=== PATIENT | female | born 1940 | race Caucasian/White ===

== ENCOUNTER 2024-03-04 20:02 | Inpatient (IN) | payer MEDICARE, SELFPAY ==
[2024-03-04 20:06] VITALS: PULSE 90; RESP 40; O2SAT 95
[2024-03-04 20:13] VITALS: BP 116/59; PULSE 91; RESP 19; TEMP 37.1; O2SAT 92
[2024-03-04 20:14] VITALS: PULSE 82; PULSE 88; RESP 21; RESP 23; O2SAT 92; O2SAT 96
[2024-03-04] MEDS: ALBUTEROL/IPRATROPIUM (Duoneb) RT SOL 3 ML NEBU INH (20:14)
--- NOTE | 2024-03-04 20:18 | EDNOTE_ITS ---
ED SOB =RME/HPI General Chief Complaint: Shortness of Breath/Dyspnea Stated Complaint: RESPIRATORY DISTRESS Time Seen by Provider: 03/04/24 20:14 Arrival date/time: 03/04/24 20:02 Limitations: no limitations RME / HPI RME / HPI Narrative: DR. COHEN MAIN ED EVALUATION: 83-year-old female with history of asthma, anxiety presenting to the emergency department by ambulance after multiple episodes of nonbilious and nonbloody emesis. The patient states she was sleeping and that is when she started vomiting. She feels like she may have aspirated. Most of the day she got more short of breath. No fevers. Generally feels weak. No chest pain or lower extremity swelling. Able to ambulate at home. Related Data Home Medications ?Medication ?Instructions ?Recorded ?Confirmed albuterol sulfate 90 mcg/actuation 2 inh inhalation Q4HR PRN ASTHMA 05/17/20 05/17/20 aerosol inhaler (Ventolin HFA) alprazolam 0.5 mg tablet 0.5 mg PO BID 05/17/20 05/17/20 aspirin 81 mg tablet,delayed 81 mg PO QDAY 05/17/20 05/17/20 release budesonide 180 mcg/actuation 180 mcg inhalation BID 05/17/20 05/17/20 breath activated powder inhaler (Pulmicort Flexhaler) furosemide 20 mg tablet 20 mg PO QDAY 05/17/20 05/17/20 gabapentin 600 mg tablet 300 mg PO TID 05/17/20 05/17/20 meloxicam 7.5 mg tablet 7.5 mg PO QDAY 05/17/20 05/17/20 metoprolol succinate 100 mg 50 mg PO BID 05/17/20 05/17/20 tablet,extended release 24 hr omeprazole 20 mg capsule,delayed 20 mg PO QDAY 05/17/20 05/17/20 release potassium chloride 8 mEq 20 meq PO QDAY 05/17/20 05/17/20 tablet,extended release Previous Rx's ?Medication ?Instructions ?Recorded ciprofloxacin HCl 500 mg tablet 500 mg PO BID #14 tabs 01/02/21 (Cipro) nitrofurantoin 100 mg PO BID #14 caps 01/02/21 monohydrate/macrocrystals 100 mg capsule (Macrobid) Allergies Allergy/AdvReac Type Severity Reaction Status Date / Time ciprofloxacin Allergy Intermediate Hives Verified 01/02/21 22:42 ofloxacin AdvReac Intermediate Rash Verified 05/17/20 15:27 sulfamethoxazole AdvReac Intermediate Rash Verified 05/17/20 15:27 trimethoprim AdvReac Intermediate Rash Verified 05/17/20 15:27 Review of Systems Review of Systems Systems Reviewed: All systems reviewed, normal except as documented Narrative Review of Systems: GEN: No fever, no chills, no weight loss EYES: No discharge, no visual changes, no pain HEENT: No ear pain, no congestion, no sore throat PULM: + shortness of breath, no cough, no congestion CV: No chest pain, no dyspnea on exertion, no palpitations GI: No nausea, + multiple episodes of nonbilious and nonbloody emesis, no diarrhea, no pain, no constipation : No frequency, no urgency and no dysuria MUSC/SKEL: No joint pain, no back pain SKIN: No rash PSYCH: No hallucinations, no depression HEME/LYMPH: No easy bleeding or bruising tendencies NEURO: + generalized weakness, no headache Past Medical History Past Medical History NEUROLOGIC: Negative Neurological Disorders or Seizures CARDIAC: Positive Cardiac Disorders, Cardiac Arrhythmia and Hypertension; Negative Congestive Heart Failure RESPIRATORY: Positive Asthma; Negative Chronic Obstructive Pulmonary Disease (COPD) GASTROINTESTINAL: Positive Gastrointestinal Disorders and Gastroesophageal Reflux Disease GENITOURINARY: Negative Genitourinary Disorders or Renal Disease REPRODUCTIVE: Positive Breast Cancer MUSCULOSKELETAL: Positive Musculoskeletal Disorders and Arthritis ENDOCRINE: Negative Endocrine Disorders, Diabetes Mellitus Type 1 or Diabetes Mellitus Type 2 HEMATOLOGIC: Negative Blood Disorders PSYCHO/SOCIAL: Positive Anxiety OTHER HISTORY: Positive Cancer and Breast Cancer; Negative Autoimmune Disease or Anesthesia Reactions Surgical History SURGICAL: Positive Cardiac Surgery, Thyroidectomy, Lumpectomy and Hysterectomy Social History SMOKING STATUS: Never smoker SUBSTANCE USE: does not use ALCOHOL: Never ED Exam Narrative Physical exam: Patient feels generally weak. General Limitations: Present no limitations General appearance: Present alert; Absent lethargic Head Head exam: Present atraumatic Eye Eye exam: Present normal appearance, PERRL and EOMI ENT ENT exam: Present normal exam, normal oropharynx and mucous membranes moist Neck Neck exam: Present normal inspection, full ROM and trachea midline Chest Chest inspection: Present normal inspection and symmetric chest wall rise Respiratory Respiratory exam: Present normal lung sounds bilaterally; Absent respiratory distress or accessory muscle use Cardiovascular Cardiovascular exam: Present regular rate, normal rhythm and normal heart sounds Abdominal Exam Abdominal exam: Present soft and normal bowel sounds; Absent tenderness, guarding or rebound Extremities Exam Extremities exam: Present normal inspection and full ROM Back Exam Back exam: Present normal inspection and full ROM Neurological Exam Neurological exam: Present alert, oriented X3 and CN II-XII intact Psychiatric Psychiatric exam: Present normal affect and normal mood Skin Skin exam: Present warm, dry, intact and normal color Course Course Course Narrative: DuoNeb is given. 2219: Sepsis alert initiated. Orders made at this time are congruent with ED Adult Sepsis Order List. Re-evaluation is to be completed. NS IVF was infused at 2217. Quality Measures Possible source: pulmonary Blood cultures ordered: yes Antibiotic ordered: Yes Pertinent labs: 03/04/24 03/04/24 20:00 21:45 Lactic Acid 2.6 H mMol/L (0.4-2.0) Procalcitonin 2.61 H ng/ml (0.0-0.49) sepsis Orders Category Date Time Status Bedside COVID-19 Antigen Test NOW Care 03/04/24 21:18 Active Bedside Influenza A&B Antigen Test NOW Care 03/04/24 21:18 Completed COVID-19 Screening Questionnaire NOW Care 03/04/24 22:25 Active Decision to Admit X1 Care 03/04/24 22:25 Active XR chest 1V SEPSIS PROTOCOL Stat Exams 03/04/24 20:17 Completed BNP [B-Type Natriuretic Peptide] Stat Lab 03/04/24 20:00 Received Blood Culture (Lab) Stat Lab 03/04/24 21:40 Received CBC Stat Lab 03/04/24 20:00 Completed CMP [Comprehensive Metabolic Panel] Stat Lab 03/04/24 20:00 Completed Lactate (Lactic Acid) Stat Lab 03/04/24 21:45 Results Mag [Magnesium] Stat Lab 03/04/24 20:00 Completed PT [Prothrombin Time with INR] Stat Lab 03/04/24 20:00 Completed PTT [Partial Thromboplastin Time] Stat Lab 03/04/24 20:00 Completed Procalcitonin Stat Lab 03/04/24 20:00 Completed Troponin I Stat Lab 03/04/24 20:00 Completed Urinalysis Stat Lab 03/04/24 20:16 Ordered Urine Culture Stat Lab 03/04/24 20:17 Ordered Albuterol/Ipratr Rt Tabitha [Duoneb Rt Tabitha] Med 03/04/24 20:13 Discontinued 3 ml INH X1 ONE Azithromycin Inj [Zithromax Inj] 500 mg Med 03/04/24 21:13 Active Sodium Chloride 0.9% 250 ml [Ns] 250 ml IV QDAY MethylPREDNISolone.* [SoluMEDROL Inj] Med 03/04/24 20:15 Discontinued 125 mg IVP X1 ONE Piper/Tazo Inj [Zosyn Inj] 3.375 gm Med 03/04/24 22:19 Active Sodium Chloride 0.9% (P) [Ns 0.9% (P)] 50 ml IV X1 Sodium Chloride 0.9% 1000 ml [Ns] 1,000 ml Med 03/04/24 20:30 Discontinued IV 999 mls/hr cefTRIAXone [Rocephin] 1,000 mg Med 03/04/24 21:13 Discontinued Sodium Chloride 0.9% [Ns] 50 ml IV X1 O2 [Oxygen Delivery] PRN RT 03/04/24 22:20 Active Vital Signs Vital signs: Vital Signs Temperature 98.7 F 03/04/24 20:13 Pulse Rate 91 03/04/24 20:13 Respiratory Rate 19 03/04/24 20:13 Blood Pressure 116/59 L 03/04/24 20:13 Pulse Oximetry (%) 92 L 03/04/24 20:13 Oxygen Delivery Method Nasal Cannula 03/04/24 20:13 Shortness of Breath / Dyspnea MDM Narrative MDM Narrative:: Differential diagnosis includes asthma exacerbation, aspiration pneumonia, sepsis, electrolyte abnormality, dehydration. Patient data External records reviewed:: [facility] previous records (Reviewed last ED visit dated 01/02/21, discharged with the following: Acute UTI.) and EMS form Clinical information provided by:: patient and EMS Social determinants that could affect healthcare access:: none Patient has the following chronic illnesses:: Asthma, anxiety How is presenting disease/condition affected by chronic disease/condition?: exacerbated by Evaluation data The following diagnostics were reviewed and interpreted by me:: lab results and radiology exam(s) Lab and/or radiology exams considered but not ordered:: none Interpretation Summary: Procedure(s): XR chest 1V SEPSIS PROTOCOL Accession Number(s): [id number] cc: Dallas Mckeon MD; Antoinette Cohen MD~ Examination: AP chest single view Technique one AP portable upright chest single view Exam date and time: March 04, 20245 hrs. Comparison the 2020 Indications: Sepsis protocol Findings: Extensive left lung pneumonia Milder right base pneumonia Mild prominence of ventricle No pulmonary edema Impression: Bilateral pneumonia, extensive and diffuse in the left lung Dictated By: Dallas Mckeon MD Medications / Prescriptions Medications or Prescriptions considered but not ordered:: none Medication administrations:: Medication Administration History Azithromycin 500 mg/ Sodium (Chloride) 250 mls @ 250 mls/hr IV QDAY JOSE D Stop: 03/11/24 21:12 Piperacillin Sod/Tazobactam (Sod 3.375 gm/ Sodium Chloride) 50 mls @ 100 mls/hr IV X1 ONE Stop: 03/04/24 22:48 Discontinued Medications Albuterol/Ipratropium (Albuterol/Ipratropium (Duoneb) Rt Tabitha 3 Ml Nebu) 3 ml INH X1 ONE Stop: 03/04/24 20:14 Last Admin: 03/04/24 20:14 Dose: 3 ml Documented By: DU Sodium Chloride (Ns) 1,000 mls @ 999 mls/hr IV .Q1H1M ONE Stop: 03/04/24 21:30 Last Infusion: 03/04/24 22:18 Dose: Infused Documented By: Admin: 03/04/24 20:30 Dose: 999 mls/hr Documented By: EF Ceftriaxone Sodium 1,000 mg/ (Sodium Chloride) 50 mls @ 100 mls/hr IV X1 ONE Stop: 03/04/24 21:42 Last Infusion: 03/04/24 22:18 Dose: Infused Documented By: Admin: 03/04/24 21:55 Dose: 100 mls/hr Documented By: EF Methylprednisolone Sodium Succinate (Methylprednisolone Sod Succ 62.5 Mg/Ml 2ml Vial) 125 mg IVP X1 ONE Stop: 03/04/24 20:16 Last Admin: 03/04/24 20:30 Dose: 125 mg Documented By: EF see above Consultations Consultation(s) initiated? (list below): Yes Consultation #1 (Physician, Specialty, Details): Discussed case with [the resident physician, attending Dr. Pantoja] from Hospitalist service regarding admission. Discussed patients ED course, exam findings, labs, and radiology results. The Hospitalist [agrees] to accept the patient for admission. Time: 22:11 Diagnosis Shortness of Breath Differential Diagnosis: other (asthma exacerbation, aspiration pneumonia, sepsis, electrolyte abnormality, dehydration) Most likely diagnosis given after review of the tests above:: see below Admission Indicated Admission indicated?: indicated Admission Request Was there a request for admission?: Yes Admission Attestation Admission request attestation: Discussed case with [] from Hospitalist service regarding admission. Discussed patients ED course, exam findings, labs, and radiology results. The Hospitalist [agrees,declines] to accept the patient for admission. Disposition Plan Disposition Plan: Admit Critical Care Time Critical Care Time Critical Care Time: Yes Total Critical Care Time (min.): 45 Attestation: The high probability of sudden, clinically significant deterioration in the patient?s condition required the highest level of my preparedness to intervene urgently. The services I provided to this patient were to treat and/or prevent clinically significant deterioration. Services included the following: chart data review, reviewing nursing notes and/or old charts, documentation time, tax consultant collaboration regarding findings and treatment options, medication orders and management, direct patient care, vital sign assessments and ordering, interpreting and reviewing diagnostic studies and lab tests. Aggregate critical care time includes only time during which I was engaged in work directly related to the patient?s care, as described above, whether at bedside or elsewhere in the Emergency Department. It did not include time spent performing other reported procedures or the services of residents, students, nurses or physician assistants. Discharge Plan Plan Patient Disposition: Admit Acute Care w/in Hospital Patient condition on transfer: Stable Prescriptions/Referrals Prescriptions/Med Rec: No Action gabapentin 600 mg tablet 300 mg PO TID metoprolol succinate 100 mg tablet extended release 24 hr 50 mg PO BID meloxicam 7.5 mg tablet 7.5 mg PO QDAY alprazolam 0.5 mg tablet 0.5 mg PO BID potassium chloride 8 mEq tablet extended release 20 meq PO QDAY omeprazole 20 mg capsule,delayed release(DR/EC) 20 mg PO QDAY furosemide 20 mg tablet 20 mg PO QDAY albuterol sulfate [Ventolin HFA] 90 mcg/actuation HFA aerosol inhaler 2 inh INHALATION Q4HR PRN (Reason: ASTHMA) Patient Comments: INHALE ONE TO TWO PUFFS BY MOUTH FOUR TIMES DAILY Pulmicort Flexhaler 180 mcg/actuation aerosol powdr breath activated 180 mcg INHALATION BID aspirin 81 mg Tablet,Delayed Release (Dr/Ec) 81 mg PO QDAY ciprofloxacin HCl [Cipro] 500 mg tablet 500 mg PO BID Qty: 14 0RF nitrofurantoin monohyd/m-cryst [Macrobid] 100 mg capsule 100 mg PO BID Qty: 14 0RF Rx Instructions: must administer with a meal/food Referrals: Herminia San MD [Primary Care Provider] - In 1 week Problem List Clinical Impression: Sepsis, Bilateral pneumonia, Hypoxia, Asthma exacerbation, Vomiting Patient/Caregiver Discharge Instructions Print Language: Latvian Stand Alone Forms: [employer] Award Info., Patient Portal Info Letter
[2024-03-04 20:25] VITALS: BMI 29.0
[2024-03-04] MEDS: MethylPREDNISolone SOD SUCC 62.5 MG/ML 2ML VIAL 125 MG IVP (20:30)
[2024-03-04] MEDS: SODIUM CHLORIDE 0.9% 1000 ML 1,000 ML 999 ML IV (20:30)
[2024-03-04 21:26] LABS: Basophils % (Auto) 0 % (0-2.5); Eosinophils % (Auto) 0 % (0-10); Hematocrit 49.5 % (36.0-46.0); Hemoglobin 17.4 g/dL (12.0-16.0); Immature Granulocytes % (Auto) 0 % (0-0); Immature Granulocytes Auto 0.01 Thou/mm3 (0.00-0.00); Lymphocytes # (Auto) 0.4 Thou/mm3 (1.0-4.8); Lymphocytes % (Auto) 7 % (10-50); Mean Corpuscular HGB Conc 35.2 g/dl (31.0-37.0); Mean Corpuscular Hemoglobin 29.9 pg (25.0-35.0); Mean Corpuscular Volume 85 fL (80-100); Monocytes # (Auto) 0.3 Thou/mm3 (0.0-0.8); Monocytes % (Auto) 5 % (0-12); Neutrophils # (Auto) 5.5 Thou/mm3 (1.8-7.7); Neutrophils % (Auto) 87 % (37-80); Nucleated Red Blood Cell % 0 /100 WBC (0); Platelet Count 202 Thou/mm3 (140-440); RDW Standard Deviation 39.2 fL (36.4-46.3); Red Blood Count 5.81 Miln/mm3 (4.00-5.20); White Blood Count 6.3 Thou/mm3 (3.6-11.0)
[2024-03-04 21:44] LABS: INR 1.1 (0.9-1.3); Partial Thromboplastin Time 28.3 Seconds (22.0-36.0); Prothrombin Time 11.7 Seconds (9.0-12.2)
[2024-03-04 21:49] LABS: Alanine Aminotransferase 12 U/L (10-49); Albumin, Serum 4.4 gm/dL (3.4-4.8); Albumin/Globulin Ratio 1.8 (1.2-2.2); Alkaline Phosphatase 76 U/L (46-116); Anion Gap 11 (7-16); Aspartate Amino Transferase 22 U/L (0-34); BUN/Creatinine Ratio 19 Ratio (12-20); Bilirubin,Total 0.8 mg/dL (0.3-1.2); Blood Urea Nitrogen 15 mg/dL (9-23); Calcium 10.7 mg/dL (8.3-10.6); Calcium (Corrected) 10.7 mg/dL (8.5-10.1); Carbon Dioxide 25.5 mMol/L (20.0-31.0); Chloride 93 mMol/L (98-107); Creatinine (Component) 0.8 mg/dL (0.6-1.3); Estimated Creatinine Clearance 58.4 mL/min (>60); Globulin 2.5 gm/dL (2.3-3.5); Glucose 129 mg/dL (74-106); Magnesium 1.9 mg/dL (1.6-2.6); Osmolality,Calculated 261 (275-295); Potassium 3.2 mMol/L (3.4-5.1); Sodium 129 mMol/L (136-145); Total Protein 6.9 gm/dL (5.7-8.2); Troponin I < 0.020 ng/mL (0.0-0.045); eGFR > 60 See Note
[2024-03-04 21:54] LABS: Procalcitonin 2.61 ng/ml (0.0-0.49)
[2024-03-04 22:07] LABS: Lactate (Lactic Acid) 2.6 mMol/L (0.4-2.0)
[2024-03-04 22:31] VITALS: PULSE 82; RESP 20; O2SAT 96
[2024-03-04] MEDS: AZITHROMYCIN INJ 500 MG in SODIUM CHLORIDE 0.9% 250 ML 250 ML 250 MG IV (22:33)
[2024-03-04] MEDS: PIPER/TAZO INJ 3.375 GM in SODIUM CHLORIDE 0.9% (P) 50 ML IV (22:33)
[2024-03-04] MEDS: ONDANSETRON INJ 2 MG/ML INJ 2 ML 4 MG IV (23:01)
--- NOTE | 2024-03-04 23:15 | EKG_ITS ---
[facility] Test Date: 2024-03-04 Pat Name: BLAZE EDMONDSON Department: Room: - Gender: Female [employer]: : [id number] Requested By: Manny Morgan Order Number: [id number] Reading MD: Manny Morgan Measurements Intervals [place] Rate: 79 P: 76 [place]: 230 QRS: -73 QRSD: 118 T: 52 QT: 393 QTc: 452 Interpretive Statements SINUS RHYTHM WITH FIRST DEGREE AV BLOCK PATTERN CONSISTENT WITH PULMONARY DISEASE LEFT ANTERIOR FASCICULAR BLOCK [QRS AXIS <= -45, QR IN I, RS IN II] MODERATE VOLTAGE CRITERIA FOR LVH, CONSIDER NORMAL VARIANT [MEETS CRITERIA IN ONE OF: R(aVL), S(V1), R(V5), R(V5/V6)+S(V1)] MODERATE ST DEPRESSION [0.05+ mV ST DEPRESSION] No previous ECG available for comparison /store/[email or web address]/[id number]
[2024-03-04 23:17] LABS: B-Type Natriuretic Peptide 152 pg/mL (0-100)
--- NOTE | 2024-03-04 23:19 | PD.RESHP ---
Documentation for date of: 03/04/24 HPI History of Present Illness Chief complaint: Vomiting, Diarrhea, SOB History of present illness: HPI: Patient is an 83-year-old female with a past medical history significant for atrial flutter s/p ablation [address] Flores, asthma, essential hypertension and breast cancer s/p left mastectomy and radiation in remission presenting today with a chief complaint of vomiting, diarrhea and shortness of breath. Patient stated that she awoke this morning and had 3 episodes of vomiting and a bout of coughing simultaneously. Patient endorses only food contents in the vomit and liquid. Initially she also had 6/10 epigastric pain which is now improved. Denied any hematemesis, bile emesis and coffee-ground emesis, also denied any strict food, fever or sick contacts. Patient said her last meal was the day before, she had some homemade spaghetti. Patient also stated that while she was vomiting she had coughing episodes and thinks that she might have aspirated some food contents. Patient also endorsed diarrhea throughout the day. Described as watery, brown in color and about 5?6 episodes for the. Denies any mucus, blood, black stools. Also denies any recent antibiotic use. With regards to patient cough she says she also has a chronic nonproductive cough due to her lisinopril use, however it acutely worsened today. Of note patient says about 2 weeks ago she was sick with flulike symptoms including a productive cough, malaise and shortness of breath. She did not use any antibiotics nor did she visit the doctor or any urgent cares. ED course: BP 116/59, pulse 91, RR 19, temp 98.7 F, SpO2 93% on 4L via NC. Labs significant for Hb 17.4, HCT 49.5, NA 129, K3.2, LA 2.6, corrected calcium 10.7, Pro-Shady 2.61. EKG significant for sinus rhythm, rate 79 and first-degree AV block. Chest x-ray significant for bibasilar consolidation worse on the left In the ED patient received DuoNebs x 1, mid. 125 Mg IV x 1, normal saline 1 L IV fluid bolus, ceftriaxone 1 g IV x 1, azithromycin 500 Mg IV x 1 and Zosyn 3.375 g IV x 1. Patient will be admitted for treatment and management of community-acquired pneumonia, intractable vomiting and diarrhea. Review of Systems Review of Systems Narrative Review of Systems: GENERAL: Denies fever/chills or diaphoresis. HEENT: Denies headaches or visual changes. Denies discharge. Neuro: Denies unusual weakness or difficulty speaking. CARDIO: Denies chest pain or palpitations. PULM: As above GI: As above URO: Denies buring/itching/pain/urinary changes. 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 MSK/EXT/SKIN: Denies joint/skeletal/muschle pain, issues/changes in upper or lower extremities, itchiness, or superficial pain. PSYCH: Cooperative, pleasant mood & affect. The rest of the review of systems is otherwise negative. Past Medical History Past Medical History Comments [facility] COMMENT: Past medical history: - Asthma ? Essential hypertension - Atrial flutter s/p ablation [address] Flores ? History of squamous cell skin carcinoma s/p resection in remission - Breast cancer s/p left mastectomy and radiation in remission [2014] ? ?Muscle wasting disorder Medication list: ?Gemtesa 75 Mg p.o. daily ? Gabapentin 300 Mg p.o. 3 times daily ? Xanax 0.25 Mg p.o. twice daily as needed ? Famotidine 20 Mg p.o. twice daily ? [place] 1 tab p.o. 3 times daily as needed ? Metoprolol XL 75 Mg p.o. twice daily ? Lisinopril 25 Mg p.o. daily ? Trelegy inhaler ? Albuterol inhaler as needed ? Timolol eyedrops ? Pred forte eyedrops ? Aspirin 81 Mg daily ? Stool softener [unsure of name] Past surgical history: ? 50 years ago ? AMANDA and BSO ? ORIF right humerus for comminuted fracture 20 years ago at [facility] ? 9 corneal transplants and laser eye surgery ? Left mastectomy with experimental intra-op radiation at [place] - 2014 ? Squamous cell cancer resection 2022 Allergies: Fluoroquinolones?hives Sulfa drugs?rash Social history: Occupational History: Retired. 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 Education Level: Graduated college Marital Status: Single. 1 Kid Tobacco use: Denies ETHO use: Drinks 2-3 glasses of wine about 2?3 times a week Illicit drug use: Denies Social History Note: lives alone. At baseline she ambulates with a walker. Family History: Father - [place] Exam Vital Signs Temp Pulse Resp BP Pulse Ox O2 Del Method O2 Flow Rate 98.7 F 82 20 116/59 L 96 Nasal Cannula 7 03/04/24 20:13 03/04/24 22:31 03/04/24 22:31 03/04/24 20:13 03/04/24 22:31 03/04/24 20:13 03/04/24 22:31 Narrative Exam Constitutional Alert, oriented x 3 and comfortable. Elderly female on O2 via NC HEENT Vision grossly intact. Patent nares. Trachea midline Respiratory Healed 3 cm surgical scar left shoulder, poor inspiratory effort, decreased air entry globally, scattered wheeze and bibasilar atelectasis Cardiovascular S1 and S2 audible, RRR. No murmurs carotid bruit. No gross JVD. Abdominal Mildly distended, obese and non tender to palpation in all quadrants. BS + Genitourinary No bladder tenderness, no flank pain. Normal to palpation Musculoskeletal Extremities tone within normal limits. Trace lower extremity edema. Neurological CN II - XII grossly intact. Extremity motor and sensation grossly intact. Skin Warm, dry and intact. No apparent lesions. Psychiatric Patient has good affect, is cooperative Results: Labs 03/04/24 20:00 03/04/24 20:00 Labs: Short CBC 03/04/24 Range/Units 20:00 WBC 6.3 (3.6-11.0) Thou/mm3 Hgb 17.4 H (12.0-16.0) g/dL Hct 49.5 H (36.0-46.0) % Plt Count 202 (140-440) Thou/mm3 BMP 03/04/24 20:00 Sodium 129 L Potassium 3.2 L Chloride 93 L Carbon Dioxide 25.5 BUN 15 Creatinine 0.8 Glucose 129 H Calcium 10.7 H Cardiac Enzymes 03/04/24 Range/Units 20:00 Troponin I < 0.020 (0.0-0.045) ng/mL Liver Function 03/04/24 Range/Units 20:00 Total Bilirubin 0.8 (0.3-1.2) mg/dL AST 22 (0-34) U/L ALT 12 (10-49) U/L Alkaline Phosphatase 76 (46-116) U/L Albumin 4.4 (3.4-4.8) gm/dL Quality Measures Quality Measures sepsis Current suspected stage: ruled out Possible source: pulmonary Blood cultures ordered: yes Antibiotic ordered: Yes Advance care planning discussed with:: patient Medications Home Medications and Allergies Home Medications ?Medication ?Instructions ?Recorded ?Confirmed ?Type albuterol sulfate 90 mcg/actuation 2 inh inhalation Q4HR PRN ASTHMA 05/17/20 05/17/20 History aerosol inhaler (Ventolin HFA) alprazolam 0.5 mg tablet 0.5 mg PO BID 05/17/20 05/17/20 History aspirin 81 mg tablet,delayed 81 mg PO QDAY 05/17/20 05/17/20 History release budesonide 180 mcg/actuation 180 mcg inhalation BID 05/17/20 05/17/20 History breath activated powder inhaler (Pulmicort Flexhaler) furosemide 20 mg tablet 20 mg PO QDAY 05/17/20 05/17/20 History gabapentin 600 mg tablet 300 mg PO TID 05/17/20 05/17/20 History meloxicam 7.5 mg tablet 7.5 mg PO QDAY 05/17/20 05/17/20 History metoprolol succinate 100 mg 50 mg PO BID 05/17/20 05/17/20 History tablet,extended release 24 hr omeprazole 20 mg capsule,delayed 20 mg PO QDAY 05/17/20 05/17/20 History release potassium chloride 8 mEq 20 meq PO QDAY 05/17/20 05/17/20 History tablet,extended release Allergies Allergy/AdvReac Type Severity Reaction Status Date / Time ciprofloxacin Allergy Intermediate Hives Verified 01/02/21 22:42 ofloxacin AdvReac Intermediate Rash Verified 05/17/20 15:27 sulfamethoxazole AdvReac Intermediate Rash Verified 05/17/20 15:27 trimethoprim AdvReac Intermediate Rash Verified 05/17/20 15:27 Visit Medications Acetaminophen (Acetaminophen 325 Mg Tablet) 1,000 mg PO Q6H PRN PRN Reason: Fever >100.3 or pain Stop: 04/03/24 23:08 Albuterol/Ipratropium (Albuterol/Ipratropium (Duoneb) Rt Tabitha 3 Ml Nebu) 3 ml INH Q6HRRT JOSE D Stop: 04/04/24 00:59 Budesonide (Budesonide Rt 0.5 Mg/2 Ml Nebu) 0.5 mg INH BIDRT [facility] Stop: 04/03/24 23:14 Enoxaparin Sodium (Enoxaparin Sod Inj 40 Mg/0.4 Ml Syringe) 40 mg SC QDAY [facility] Stop: 03/19/24 08:59 Azithromycin 500 mg/ Sodium (Chloride) 250 mls @ 250 mls/hr IV QDAY [facility] Stop: 03/11/24 21:12 Last Admin: 03/04/24 22:33 Dose: 250 mls/hr Lactated Ringer's (Lactated Ringers) 1,000 mls @ 80 mls/hr IV .[id number] [facility] Stop: 04/03/24 23:14 Potassium Chloride (Kcl Ivpb) 10 meq in 100 mls @ 100 mls/hr IV Q1H [facility] Stop: 03/05/24 03:17 Morphine Sulfate (Morphine Sulf Inj 10 Mg/Ml Vial) 2 mg IVP Q4H PRN PRN Reason: Breakthrough Pain Stop: 03/09/24 23:08 Ondansetron HCl (Ondansetron Inj 2 Mg/Ml Inj 2 Ml) 4 mg IV Q6H PRN; Protocol PRN Reason: NAUSEA OR VOMITING Stop: 04/03/24 23:08 Pantoprazole Sodium (Pantoprazole Inj 40 Mg Vial) 40 mg IVP QDAY [facility] Stop: 04/03/24 23:14 Discontinued Medications Albuterol/Ipratropium (Albuterol/Ipratropium (Duoneb) Rt Tabitha 3 Ml Nebu) 3 ml INH X1 ONE Stop: 03/04/24 20:14 Last Admin: 03/04/24 20:14 Dose: 3 ml Sodium Chloride (Ns) 1,000 mls @ 999 mls/hr IV .Q1H1M ONE Stop: 03/04/24 21:30 Last Infusion: 03/04/24 22:18 Dose: Infused Ceftriaxone Sodium 1,000 mg/ (Sodium Chloride) 50 mls @ 100 mls/hr IV X1 ONE Stop: 03/04/24 21:42 Last Infusion: 03/04/24 22:18 Dose: Infused Piperacillin Sod/Tazobactam (Sod 3.375 gm/ Sodium Chloride) 50 mls @ 100 mls/hr IV X1 ONE Stop: 03/04/24 22:48 Last Admin: 03/04/24 22:33 Dose: 100 mls/hr Methylprednisolone Sodium Succinate (Methylprednisolone Sod Succ 62.5 Mg/Ml 2ml Vial) 125 mg IVP X1 ONE Stop: 03/04/24 20:16 Last Admin: 03/04/24 20:30 Dose: 125 mg Ondansetron HCl (Ondansetron Inj 2 Mg/Ml Inj 2 Ml) 4 mg IV X1 ONE; Protocol Stop: 03/04/24 22:48 Last Admin: 03/04/24 23:01 Dose: 4 mg Sodium Chloride (Sodium Chloride Rt 10% 15 Ml Nebu) 5 ml INH X1 ONE Stop: 03/04/24 23:15 Assessment & Plan Plan Patient is an 83-year-old female with a past medical history significant for atrial flutter s/p ablation [address] Flores, asthma, essential hypertension and breast cancer s/p left mastectomy and radiation in remission presenting today with a chief complaint of vomiting, diarrhea and shortness of breath.Patient will be admitted for treatment and management of community-acquired pneumonia, intractable vomiting and diarrhea. 1. Viral gastroenteritis 2. Lactic acidosis secondary to intractable vomiting 3. Diarrhea 4. Hypokalemia 5. Hyponatremia?mild Patient had 6 episodes of vomiting food contents along with 6 episodes of watery diarrhea. DDx: Viral gastroenteritis, medication side effect, food poisoning, pancreatitis On admission NA 129, K3.2, LA 2.6 Plan: ? N.p.o. ? Lactated Ringer's IV fluid at 80 cc/hour ? Lactobacilli 1 cap p.o. twice daily ? KCl 40 mEq IV x 1 ? Ondansetron 4 Mg IV Q6 hourly as needed. ? Stool studies ordered including Giardia, H. pylori, C. difficile, calprotectin, norovirus, stool culture and stool for WBCs. 6. Likely community-acquired pneumonia versus aspiration pneumonia 7. Asthma Patient presented with a cough for 1 day with possible aspiration of vomitus. On exam patient had decreased air entry bilaterally with poor inspiratory effort and scattered wheeze. Chest x-ray significant for bibasilar consolidation worse on the left PSI/PORT : 1 of 2 points. Risk class IV. Hospitalization recommended based on risk Plan: ? Supplemental O2 as needed ? Aspiration precautions -Sputum culture ordered. ? RSV ordered ? DuoNebs every 6 hourly ? Pulmicort nebs twice daily ? Started on Zosyn 4.5 g IV every 6 hourly to cover for aspiration pneumonia on [03/05? ? Started on azithromycin 500 Mg IV daily [03/04? 8. Essential hypertension 9. History of atrial flutter s/p ablation 2014 Home medication Metoprolol XL 75 Mg p.o. twice daily, lisinopril 25 Mg p.o. daily Plan: ? Day team to decide on resumption of antihypertensives 10. 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 Glaucoma Home medication timolol eyedrops and Pred forte eyedrops. Plan: ? Resume home medication timolol and Pred forte eyedrops 13. History of breast cancer s/p left mastectomy with IntraOp radiation in remission 2014 14. History of squamous cell skin carcinoma s/p resection 2022 Health maintenance: Disposition: IV antibiotics, nebulizers, stool studies Diet: NPO Lines: pIVs GI Prophylaxis: Pantoprazole IV Thrombo Prophylaxis: Enoxaparin Code status: FULL CODE Plan of care discussed with Attending Dr. Kit Morgan MD PGY 1 Attending Provider Attestation/Addendum I have discussed and was present for the essential components of the history, physical examination, diagnosis, and treatment plan with the resident. I agree with the patient's care as documented by the resident and amended herein by me. Сергей Pantoja DO. Patient seen and evaluated in the ED., 83-year-old female with significant past medical history of atrial flutter status post ablation in 2014, asthma, hypertension, breast cancer status post left mastectomy in remission presented to the ED with complaints of vomiting, watery diarrhea and shortness of breath which began approximately 1 day prior to admission. Denied any fever, chills, hematemesis, chest pain or palpitations. Patient did endorse flulike symptoms to include cough which began approximately 2 weeks ago however she also endorsed chronic cough with lisinopril use. Patient subsequently admitted for diffuse left lung pneumonia, hypokalemia and dehydration. In the ED, vital signs stable, patient afebrile, patient initially on NC 10 L, SpO2 92% however has since improved. CBC largely unremarkable, hemoglobin 17.4 likely concentrated, BMP significant for a sodium of 129, potassium 3.2, renal function is normal. Lactic acid was 2.6 on arrival, Pro-Shady elevated 2.61 and calcium slightly elevated 10.7. Chest x-ray demonstrating left lung diffuse pneumonia. Patient was given ceftriaxone, azithromycin and Zosyn in the ED. Patient admitted to med/tele, will continue ceftriaxone and azithromycin for now, blood cultures drawn and pending, will also test for C. difficile and cocci. Will replete electrolytes as needed and reconcile home medication and restart as warranted. Although this document has been carefully reviewed, there may still be some phonetic and other typographical errors. These errors are purely grammatical due to imperfections in the software program and should not be construed in any way to compromise the substance of the patient's medical care during this visit.
[2024-03-04] MEDS: POTASSIUM CHL 10 mEq IVPB 10 MEQ/100 ML BAG 100 MEQ IV (23:42)
[2024-03-04] MEDS: RINGERS LACTATED 1000 ML 1,000 ML 80 ML IV (23:42)
[2024-03-04] MEDS: PANTOPRAZOLE INJ 40 MG VIAL IVP (23:42)
[2024-03-04 23:44] LABS: Cardiac Risk Estimate 3.2 RATIO (3.7-5.6); Cholesterol 232 mg/dL (132-200); HDL Cholesterol 72 mg/dL (40-60); LDL Cholesterol,Calculated 138 mg/dL (0-130); Triglycerides 108 mg/dL (30-150)
[2024-03-05] VITALS (12 sets, daily range): BP systolic 108–139; BP diastolic 66–85; PULSE 74–99; RESP 18–22; TEMP 36.3–36.9; O2SAT 92–100; BMI 27.9
[2024-03-05 01:06] LABS: Reflex Lactate? Y
[2024-03-05] MEDS: POTASSIUM CHL 10 mEq IVPB 10 MEQ/100 ML BAG 100 MEQ IV ×5 (01:20→10:55)
[2024-03-05] MEDS: ALBUTEROL/IPRATROPIUM (Duoneb) RT SOL 3 ML NEBU INH ×4 (01:57→19:59)
[2024-03-05 05:29] LABS: Basophils % (Auto) 0 % (0-2.5); Eosinophils % (Auto) 0 % (0-10); Hematocrit 44.8 % (36.0-46.0); Hemoglobin 15.1 g/dL (12.0-16.0); Immature Granulocytes % (Auto) 0 % (0-0); Immature Granulocytes Auto 0.04 Thou/mm3 (0.00-0.00); Lymphocytes # (Auto) 0.5 Thou/mm3 (1.0-4.8); Lymphocytes % (Auto) 5 % (10-50); Mean Corpuscular HGB Conc 33.7 g/dl (31.0-37.0); Mean Corpuscular Hemoglobin 29.3 pg (25.0-35.0); Mean Corpuscular Volume 87 fL (80-100); Monocytes # (Auto) 0.5 Thou/mm3 (0.0-0.8); Monocytes % (Auto) 5 % (0-12); Neutrophils # (Auto) 10.6 Thou/mm3 (1.8-7.7); Neutrophils % (Auto) 90 % (37-80); Nucleated Red Blood Cell % 0 /100 WBC (0); Platelet Count 187 Thou/mm3 (140-440); RDW Standard Deviation 40.6 fL (36.4-46.3); Red Blood Count 5.16 Miln/mm3 (4.00-5.20); White Blood Count 11.7 Thou/mm3 (3.6-11.0)
[2024-03-05 05:53] LABS: Alanine Aminotransferase 12 U/L (10-49); Albumin, Serum 4.3 gm/dL (3.4-4.8); Alkaline Phosphatase 66 U/L (46-116); Anion Gap 12 (7-16); Aspartate Amino Transferase 18 U/L (0-34); BUN/Creatinine Ratio 20 Ratio (12-20); Bilirubin,Total 0.9 mg/dL (0.3-1.2); Blood Urea Nitrogen 18 mg/dL (9-23); Calcium 9.7 mg/dL (8.3-10.6); Calcium (Corrected) 9.7 mg/dL (8.5-10.1); Carbon Dioxide 27.3 mMol/L (20.0-31.0); Chloride 93 mMol/L (98-107); Creatinine (Component) 0.9 mg/dL (0.6-1.3); Estimated Creatinine Clearance 51.9 mL/min (>60); Globulin 2.2 gm/dL (2.3-3.5); Glucose 162 mg/dL (74-106); Lipase 20 U/L (12-53); Magnesium 1.8 mg/dL (1.6-2.6); Osmolality,Calculated 270 (275-295); Phosphorous 2.4 mg/dL (2.4-5.1); Potassium 3.2 mMol/L (3.4-5.1); Sodium 132 mMol/L (136-145); Thyroid Stimulating Hormone 0.49 uIU/mL (0.55-4.78); Total Protein 6.5 gm/dL (5.7-8.2); eGFR > 60 See Note
[2024-03-05] MEDS: BUDESONIDE RT 0.5 MG/2 ML NEBU INH ×2 (06:27→19:59)
[2024-03-05] MEDS: PIPER/TAZO 3.375 GM 50 ML IV ×3 (07:44→22:53)
[2024-03-05] MEDS: AZITHROMYCIN INJ 500 MG in SODIUM CHLORIDE 0.9% 250 ML 250 ML 250 MG IV (08:22)
[2024-03-05] MEDS: ENOXAPARIN SOD INJ 40 MG/0.4 ML SYRINGE SC (08:24)
[2024-03-05] MEDS: PANTOPRAZOLE INJ 40 MG VIAL IVP (08:24)
[2024-03-05] MEDS: TIMOLOL OP SOL 0.5% 5 ML BTL 1 DROP BOTH EYES ×2 (08:25→23:22)
[2024-03-05] MEDS: ASPIRIN EC 81 MG TABEC PO (08:25)
[2024-03-05] MEDS: lorataDINE 10 MG TABLET PO (08:25)
[2024-03-05 10:17] LABS: Collection Type, Urine Voided
[2024-03-05 10:34] LABS: Bilirubin,Urine Negative (Negative); Blood,Urine Negative (Negative); Clarity,Urine Clear (Clear/Hazy); Color,Urine Yellow (Lt Yel-Yel); Glucose, Urine Negative (Negative); Hyaline Casts,Urine 1 /hpf (0-1); Ketones,Urine Negative (Negative); Leukocyte Esterase,Urine Negative (Negative); Nitrite,Urine Negative (Negative); Protein,Urine Trace (Neg - Trace); RBC,Urine 2 /hpf (0-3); Specific Gravity,Urine 1.026 (1.001-1.035); Squamous Epithelial Cell,Urine 2 /hpf (0-5); Urobilinogen,Urine Negative mg/dL (0.0-1.0); WBC,Urine 1 /hpf (0-5)
[2024-03-05] MEDS: RINGERS LACTATED 1000 ML 1,000 ML 80 ML IV ×2 (11:09→23:31)
[2024-03-05] MEDS: POTASSIUM CHLORIDE 20 mEq TABCR PO (12:09)
--- NOTE | 2024-03-05 12:30 | PC.RT ---
pt refuses to do induction for sputum sample due to consistent vomiting. She does not want the chance of vomiting again.
[2024-03-05 12:43] LABS: Respiratory Syncytial Virus Ag Negative (Negative)
[2024-03-05 14:16] LABS: Potassium 4.4 mMol/L (3.4-5.1)
[2024-03-05 14:21] LABS: Cocci Serology, IgM Negative (Negative)
--- NOTE | 2024-03-05 17:08 | ESPR_ITS ---
Documentation for date of: 03/05/24 Senior resident attestation: Patient is an 83-year-old female past medical history of esophageal stricture status post dilations, chronic back pain, atrial flutter status post ablation, asthma, hypertension, history of breast cancer s/p mastectomy and radiation who came into the ED with vomiting and abdominal pain. There was concern for aspiration pneumonia as patient reported she vomited when she was laying in bed and may have aspirated. Also chest x-ray shows infiltrates in the left lung consistent with pneumonia/aspiration. Patient has a history of dysphagia but after dilations symptoms improve. The patient reported no diarrhea, however stool studies were ordered by admitting team due to concern for gastroenteritis. #Acute hypoxic respiratory failure #Aspiration pneumonia?IV Zosyn and IV azithromycin. #History of asthma?DuoNebs and budesonide nebulization #Dysphagia?secondary to congenital esophageal stricture, gastroenterology consult is placed, patient is on clear liquid diet. #Vomiting #History of A- flutter status post ablation?on metoprolol tartrate 100 twice daily, which is resumed #History of breast cancer #History of squamous cell cancer Patient evaluated and examined at the bedside, plan of care discussed with rest of the team including my attending physician, except as noted. Quresh PGY2 Subjective Subjective Interval history: 03/05: Patient is an overnight admit. Patient is seen and examined at bedside this morning. Patient states that yesterday she had 3 episode of mild projectile vomiting because she has congenital esophageal strictures and has been dilated many times in the past but has not been able to recently she regurgitated and aspirated her vomit. Patient states that she has been having epigastric pain which is relieved after she vomits and constantly burping. patient denies any sick contacts or recent travels she denies eating anything out of the ordinary or takeout. Patient lives on an elevation on her own and uses a walker or cane to ambulate patient has a helper that comes to her house 3-4 times a week and helps her with chores. Patient states that although she does not use oxygen at home she does have history of asthma and uses albuterol inhaler approximately once a month but yesterday she was saturating very low on oxygen in the 70s. In the ED patient is on 5 L oxygen saturating at 97% she denies any shortness of breath chest pain she still is nauseous but denies any vomiting. Patient also complains of lower abdominal tenderness denies any diarrhea patient's last bowel movement was 3 days ago and it was soft and content consistency. Patient states about 20 years ago she fell off of a mule and caused nerve damage and chronic back pain for which she sees Dr. Pedersen for pain management and Dr. Auguste for the nerve damage. Exam Vital Signs Temp Pulse Resp BP Pulse Ox O2 Del Method O2 Flow Rate 97.8 F 90 20 108/67 94 L Room Air 4 03/05/24 14:12 03/05/24 14:12 03/05/24 14:12 03/05/24 14:12 03/05/24 14:12 03/05/24 14:12 03/05/24 12:27 Narrative Exam GENERAL: A&Ox3 . Awake, Not in acute distress, elderly female on 5 L oxygen via nasal cannula NEURO: no focal neurological deficits HEENT: Atraumatic, Normocephalic. mucous membranes moist. Eyes open, symmetrical, & clear HEART: Normal Heart Sounds LUNGS: Bibasilar wheezing or no crackles. ABDOMEN: soft, non-distended, mild tenderness on right lower and left lower quadrants, tenderness in the epigastric region, bowel sounds heard, no guarding or rebound tenderness SKIN: No Rash or ecchymoses EXTREMITIES: No edema, tenderness, able to move all 4 extremities, pedal pulses palpated Objective Labs 03/06/24 12:46 03/06/24 04:48 Labs: Laboratory Results - last 24 hr 03/04/24 03/04/24 03/04/24 20:00 21:45 23:58 WBC 6.3 RBC 5.81 H Hgb 17.4 H Hct 49.5 H MCV 85 MCH 29.9 MCHC 35.2 RDW Std Deviation 39.2 Plt Count 202 Neut % (Auto) 87 H Lymph % (Auto) 7 L [place] % (Auto) 5 Eos % (Auto) 0 Baso % (Auto) 0 Neut # (Auto) 5.5 Lymph # (Auto) 0.4 L [place] # (Auto) 0.3 Eos # (Auto) 0.0 Baso # (Auto) 0.0 Immature Gran # (Auto) 0.01 H Absolute Nucleated RBC 0.00 Immature Gran % 0 Nucleated RBC % 0 PT 11.7 INR 1.1 APTT 28.3 Sodium 129 L Potassium 3.2 L Chloride 93 L Carbon Dioxide 25.5 Anion Gap 11 BUN 15 Creatinine 0.8 Estim Creat Clear Calc 58.4 L eGFR > 60 BUN/Creatinine Ratio 19 Glucose 129 H Calculated Osmolality 261 L Lactic Acid 2.6 H Calcium 10.7 H Corrected Calcium 10.7 H Phosphorus Magnesium 1.9 Total Bilirubin 0.8 AST 22 ALT 12 Alkaline Phosphatase 76 Troponin I < 0.020 B-Natriuretic Peptide 152 H Total Protein 6.9 Albumin 4.4 Globulin 2.5 Albumin/Globulin Ratio 1.8 Triglycerides 108 Cholesterol 232 H LDL Cholesterol, Calc 138 H HDL Cholesterol 72 H Cholesterol/HDL Ratio 3.2 L Lipase Procalcitonin 2.61 H TSH Ur Collection Type Urine Color Urine Clarity Urine pH Ur Specific [place] Urine Protein Urine Glucose (UA) Urine Ketones Urine Blood Urine Nitrite Urine Bilirubin Urine Urobilinogen (Auto) Ur Leukocyte Esterase Urine RBC Urine WBC Ur Squamous Epith Cells Urine Bacteria Hyaline Casts Coccidioides IgM Ab Negative RSV Rapid 03/05/24 03/05/24 03/05/24 01:35 04:25 04:30 WBC 11.7 H D RBC 5.16 Hgb 15.1 D Hct 44.8 MCV 87 MCH 29.3 MCHC 33.7 RDW Std Deviation 40.6 Plt Count 187 Neut % (Auto) 90 H Lymph % (Auto) 5 L [place] % (Auto) 5 Eos % (Auto) 0 Baso % (Auto) 0 Neut # (Auto) 10.6 H Lymph # (Auto) 0.5 L [place] # (Auto) 0.5 Eos # (Auto) 0.0 Baso # (Auto) 0.0 Immature Gran # (Auto) 0.04 H Absolute Nucleated RBC 0.00 Immature Gran % 0 Nucleated RBC % 0 PT INR APTT Sodium 132 L Potassium 3.2 L Chloride 93 L Carbon Dioxide 27.3 Anion Gap 12 BUN 18 Creatinine 0.9 Estim Creat Clear Calc 51.9 L eGFR > 60 BUN/Creatinine Ratio 20 Glucose 162 H Calculated Osmolality 270 L Lactic Acid 2.0 Calcium 9.7 Corrected Calcium 9.7 Phosphorus 2.4 Magnesium 1.8 Total Bilirubin 0.9 AST 18 ALT 12 Alkaline Phosphatase 66 Troponin I B-Natriuretic Peptide Total Protein 6.5 Albumin 4.3 Globulin 2.2 L Albumin/Globulin Ratio 2.0 Triglycerides Cholesterol LDL Cholesterol, Calc HDL Cholesterol Cholesterol/HDL Ratio Lipase 20 Procalcitonin TSH 0.49 L Ur Collection Type Urine Color Urine Clarity Urine pH Ur Specific [place] Urine Protein Urine Glucose (UA) Urine Ketones Urine Blood Urine Nitrite Urine Bilirubin Urine Urobilinogen (Auto) Ur Leukocyte Esterase Urine RBC Urine WBC Ur Squamous Epith Cells Urine Bacteria Hyaline Casts Coccidioides IgM Ab RSV Rapid Negative 03/05/24 03/05/24 09:33 13:57 WBC RBC Hgb Hct MCV MCH MCHC RDW Std Deviation Plt Count Neut % (Auto) Lymph % (Auto) [place] % (Auto) Eos % (Auto) Baso % (Auto) Neut # (Auto) Lymph # (Auto) [place] # (Auto) Eos # (Auto) Baso # (Auto) Immature Gran # (Auto) Absolute Nucleated RBC Immature Gran % Nucleated RBC % PT INR APTT Sodium Potassium 4.4 D Chloride Carbon Dioxide Anion Gap BUN Creatinine Estim Creat Clear Calc eGFR BUN/Creatinine Ratio Glucose Calculated Osmolality Lactic Acid Calcium Corrected Calcium Phosphorus Magnesium Total Bilirubin AST ALT Alkaline Phosphatase Troponin I B-Natriuretic Peptide Total Protein Albumin Globulin Albumin/Globulin Ratio Triglycerides Cholesterol LDL Cholesterol, Calc HDL Cholesterol Cholesterol/HDL Ratio Lipase Procalcitonin TSH Ur Collection Type Voided Urine Color Yellow Urine Clarity Clear Urine pH 6.0 Ur Specific [place] 1.026 Urine Protein Trace Urine Glucose (UA) Negative Urine Ketones Negative Urine Blood Negative Urine Nitrite Negative Urine Bilirubin Negative Urine Urobilinogen (Auto) Negative Ur Leukocyte Esterase Negative Urine RBC 2 Urine WBC 1 Ur Squamous Epith Cells 2 Urine Bacteria None Hyaline Casts 1 Coccidioides IgM Ab RSV Rapid Quality Measures Quality Measures sepsis Current suspected stage: ruled out Possible source: pulmonary Blood cultures ordered: yes Antibiotic ordered: Yes Advance care planning discussed with:: patient Assessment & Plan Assessment Current Active Medications: Generic Name Dose Route Start Last Admin Trade Name Freq PRN Reason Stop Dose Admin Acetaminophen 1,000 mg 03/04/24 23:09 Acetaminophen 325 Mg Tablet PO 04/03/24 23:08 Q6H PRN Fever >100.3 or pain Albuterol/Ipratropium 3 ml 03/05/24 01:00 03/05/24 12:27 Albuterol/Ipratropium (Duoneb) Rt Tabitha 3 Ml Nebu INH 04/04/24 00:59 3 ml Q6HRRT JOSE D Administration Alprazolam 0.25 mg 03/05/24 00:41 Alprazolam 0.25 Mg Tablet PO 03/10/24 00:40 BID PRN ANXIETY Aspirin 81 mg 03/05/24 09:00 03/05/24 08:25 Aspirin Ec 81 Mg Tabec PO 04/04/24 08:59 81 mg QDAY JOSE D Administration Budesonide 0.5 mg 03/05/24 07:00 03/05/24 06:27 Budesonide Rt 0.5 Mg/2 Ml Nebu INH 04/04/24 06:59 0.5 mg BIDRT JOSE D Administration Enoxaparin Sodium 40 mg 03/05/24 09:00 03/05/24 08:24 Enoxaparin Sod Inj 40 Mg/0.4 Ml Syringe SC 03/19/24 08:59 40 mg QDAY JOSE D Administration Gabapentin 300 mg 03/05/24 00:40 Gabapentin 300 Mg Capsule PO 04/04/24 00:44 TID PRN Back or leg pain Azithromycin 500 mg/ Sodium 250 mls @ 250 mls/hr 03/04/24 21:13 03/05/24 09:35 Chloride IV 03/11/24 21:12 Infused QDAY JOSE D Infusion Lactated Ringer's 1,000 mls @ 80 mls/hr 03/04/24 23:15 03/05/24 11:09 Lactated Ringers IV 04/03/24 23:14 80 mls/hr .[id number] JOSE D Administration Piperacillin/Tazobactam/Dextrose 50 mls @ 12.5 mls/hr 03/05/24 07:00 03/05/24 13:25 Zosyn IV 03/12/24 06:59 12.5 mls/hr Q8HR JOSE D Administration Protocol Lactobacillus Rhamnosus 1 cap 03/05/24 09:00 03/05/24 08:25 Lactobacillus Rhamnosus 1 Cap PO 03/12/24 08:59 Not Given BID JOSE D Loratadine 10 mg 03/05/24 09:00 03/05/24 08:25 Loratadine 10 Mg Tablet PO 04/04/24 08:59 10 mg QDAY JOSE D Administration Morphine Sulfate 2 mg 03/04/24 23:09 Morphine Sulf Inj 10 Mg/Ml Vial IVP 03/09/24 23:08 Q4H PRN Breakthrough Pain Ondansetron HCl 4 mg 03/04/24 23:09 Ondansetron Inj 2 Mg/Ml Inj 2 Ml IV 04/03/24 23:08 Q6H PRN NAUSEA OR VOMITING Protocol Pantoprazole Sodium 40 mg 03/04/24 23:15 03/05/24 08:24 Pantoprazole Inj 40 Mg Vial IVP 04/03/24 23:14 40 mg QDAY JOSE D Administration Prednisolone Acetate 1 drop 03/05/24 09:00 03/05/24 08:25 Prednisolone Op Susp 1% 5 Ml Btl BOTH EYES 04/04/24 08:59 Not Given BID JOSE D Timolol Maleate 1 drop 03/05/24 09:00 03/05/24 08:25 Timolol Op Tabitha 0.5% 5 Ml Btl BOTH EYES 04/04/24 08:59 1 drop BID JOSE D Administration Plan Ms. Ortega is an 83-year-old female with a past medical history significant for atrial flutter s/p ablation [address] Flores, asthma, hypertension and breast cancer s/p left mastectomy and radiation in remission, congenital esophageal stricture status post dilation, chronic back pain presented to the ED with a chief complaint of nausea, vomiting and abdominal pain. #Viral gastroenteritis #lactic acidosis secondary to intractable vomiting #Hyponatremia #Hypokalemia Patient had 6 episodes of vomiting DDx: Viral gastroenteritis, medication side effect, food poisoning, pancreatitis On admission NA 129, K3.2, LA 2.6 Plan: ? N.p.o. ? Lactated Ringer's IV fluid at 80 cc/hour given in the ED ? Lactobacilli 1 cap p.o. twice daily ? KCl 40 mEq IV x 2 given ? Ondansetron 4 Mg IV Q6 hourly as needed. ? Stool studies ordered including Giardia, H. pylori, C. difficile, calprotectin, norovirus, stool culture and stool for WBCs. # Acute hypoxic respiratory failure # community-acquired pneumonia versus aspiration pneumonia # History of asthma Patient presented with a cough for 1 day with possible aspiration of vomitus. Bibasilar wheezing on auscultation Patient uses inhalers at home Patient is on 5 L oxygen via nasal cannula and Chest x-ray significant for bibasilar consolidation worse on the left On admission PSI/PORT : 1 of 2 points. Risk class IV. Hospitalization recommended based on risk Plan: ? Supplemental O2 as needed ? Aspiration precautions -Sputum culture ordered. ? RSV ordered ? DuoNebs every 6 hourly ? Pulmicort nebs twice daily ? Started on Zosyn 4.5 g IV every 6 hourly to cover for aspiration pneumonia on [03/05? ? Started on azithromycin 500 Mg IV daily [03/04? # Congenital esophageal stricture -Patient states she has a history of congenital esophageal stricture and has undergone esophageal dilation with Dr. Babb many times -Patient's last dilation was sometime ago and has been unable to get an appointment -Patient has been choking on her food frequently causing her to regurgitate and aspirate Plan: ? GI consulted, appreciate recommendations #Chronic back pain -20 years ago patient fell off a mule and has been experiencing chronic back pain and nerve damage since patient sees Dr. Pedersen and Dr. Auguste outpatient -Patient uses a walker or a cane to ambulate around the house -Patient's home medications include gabapentin 300mg p.o. 3 times daily Plan: -Physical therapy ordered -Waiting med rec's to resume home medications #Essential hypertension #History of atrial flutter s/p ablation 2014 Home medication include Metoprolol XL 75 Mg p.o. twice daily, lisinopril 25 Mg p.o. daily Patient blood pressure is stable at 108/67, will hold antihypertensive therapy for now we will continue to monitor blood pressure #Allergic rhinitis #[place]at[place] s/p 9 corneal transplants #Glaucoma Home medication timolol eyedrops and Pred forte eyedrops. Plan: ? Resume home medication timolol and Pred forte eyedrops # History of breast cancer s/p left mastectomy with IntraOp radiation in remission 2014 # History of squamous cell skin carcinoma s/p resection 2022 Health maintenance: Disposition: IV antibiotics, nebulizers, stool studies Diet: NPO Lines: pIVs GI Prophylaxis: Pantoprazole IV Thrombo Prophylaxis: Enoxaparin Code status: FULL CODE Assessment and plan discussed with my senior resident Dr. Longoria & attending physician Dr. Rosio Figueroa (PGY-1)- Internal medicine resident Attending Provider Attestation/Addendum Kaye Raines, DO, attest that I was physically present for the ortega portions of the service and evaluated the patient with the resident and I reviewed and discussed the case with the resident and agree with the resident's findings and plans of care as documented above Patient seen and evaluated in the ED. Patient is somnolent and in no acute distress. Patient reported projectile vomiting and has history of esophageal strictures which has recurred. Patient reported that she is due to f/u with GI. However, overnight, patient developed nausea and vomiting. CXR shows significant left lung pneumonia, supsicious for atypical versus aspiration pneumonia. Continue with azithromycin and zosyn. However, patient on room air at time of evaluation. Will consult GI and continue with IV fluid hydration.
--- NOTE | 2024-03-05 18:19 | PC.NURSE ---
Patient arrived in med surg unit from ED via gurney around 17:35PM. Patient stated she wanted to rest Report received from Carlyn SALINAS.
--- NOTE | 2024-03-05 21:10 | ESCONSULT_ITS ---
HPI Data of Consult Requesting Physician: Kaye Avelar DO Primary Care Provider: Herminia San MD Consult Narrative Reason for consult: Nausea vomiting History of present illness: 83 years old female presented to the emergency room with nonbilious nonbloody vomiting and was subsequently admitted Lactic acid was 2.6 and sodium was 129 Chest x-ray showed bilateral pneumonia patient was subsequently admitted Patient does have a history of atrial flutter requiring ablation left mastectomy radiation therapy for breast carcinoma and history of bronchial asthma with anxiety neurosis cc:: cc: Kaye Avelar DO Review of Systems Review of Systems Systems Reviewed: All systems reviewed, normal except as documented Past Medical History Surgical History OTHER SURGICAL HX: As in the history of present illness Meds Home Medications and Allergies Home Medications ?Medication ?Instructions ?Recorded ?Confirmed ?Type albuterol sulfate 90 mcg/actuation 2 inh inhalation Q4HR PRN ASTHMA 05/17/20 05/17/20 History aerosol inhaler (Ventolin HFA) alprazolam 0.5 mg tablet 0.5 mg PO BID 05/17/20 05/17/20 History aspirin 81 mg tablet,delayed 81 mg PO QDAY 05/17/20 05/17/20 History release budesonide 180 mcg/actuation 180 mcg inhalation BID 05/17/20 05/17/20 History breath activated powder inhaler (Pulmicort Flexhaler) furosemide 20 mg tablet 20 mg PO QDAY 05/17/20 03/05/24 History gabapentin 600 mg tablet 300 mg PO TID 05/17/20 03/05/24 History meloxicam 7.5 mg tablet 7.5 mg PO QDAY 05/17/20 05/17/20 History metoprolol succinate 100 mg 50 mg PO BID 05/17/20 05/17/20 History tablet,extended release 24 hr omeprazole 20 mg capsule,delayed 20 mg PO QDAY 05/17/20 03/05/24 History release potassium chloride 8 mEq 20 meq PO QDAY 05/17/20 03/05/24 History tablet,extended release biotin 10,000 mcg capsule 10,000 mcg PO 03/05/24 History carboxymethylcellulose sodium 0.5 1 drp ophthalmic (eye) BID PRN Dry 03/05/24 03/05/24 History % eye drops (Refresh Tears) Eyes cyanocobalamin (vitamin B-12) 1,000 mcg PO QDAY 03/05/24 History 1,000 mcg tablet (Vitamin B-12) fluticasone fur. 200 mcg-umeclid 1 inh inhalation QDAY 03/05/24 03/05/24 History 62.5 mcg-vilant 25 mcg inhalat.powder (Trelegy Ellipta) hydrocodone 5 mg-acetaminophen 325 0.5 tab PO Q6H PRN Pain 03/05/24 History mg tablet lisinopril 20 1 tab PO QDAY 03/05/24 03/05/24 History mg-hydrochlorothiazide 12.5 mg tablet loperamide 2 mg capsule 2 mg PO PRN PRN Diarrhea 03/05/24 03/05/24 History loratadine 10 mg tablet 10 mg PO QDAY 03/05/24 03/05/24 History metoprolol tartrate 50 mg tablet 100 mg PO BID 03/05/24 03/05/24 History drcldhufxvpl-zxorgnwv-jhlaog tablet 1 tab PO QDAY 03/05/24 History psyllium 1 tbsp PO PRN PRN Constipation 03/05/24 03/05/24 History simethicone 125 mg capsule (Gas 125 mg PO QDAY PRN Abdominal 03/05/24 03/05/24 History Relief (simethicone)) Discomfort vibegron 75 mg tablet (Gemtesa) 75 mg PO QDAY 03/05/24 History vit C 250 mg-vit E 90 mg-zinc 40 1 tab PO BID 03/05/24 History mg-copper 1 bn-bbknsr-yfevlk capsule (PreserVision AREDS-2) Allergies Allergy/AdvReac Type Severity Reaction Status Date / Time cat dander Allergy Severe Difficulty Verified 03/05/24 21:27 Breathing ciprofloxacin Allergy Intermediate Hives Verified 03/05/24 21:24 pollen extracts Allergy Mild Difficulty Verified 03/05/24 21:26 Breathing ofloxacin AdvReac Intermediate Rash Verified 03/05/24 21:24 sulfamethoxazole AdvReac Intermediate Rash Verified 03/05/24 21:24 trimethoprim AdvReac Intermediate Rash Verified 03/05/24 21:24 Exam Vital Signs Temp Pulse Resp BP Pulse Ox O2 Del Method O2 Flow Rate 97.4 F 92 22 H 139/67 H 95 Room Air 4 03/05/24 20:00 03/05/24 20:00 03/05/24 20:00 03/05/24 20:00 03/05/24 20:00 03/05/24 20:00 03/05/24 12:27 Constitutional Comments: Chronically ill-appearing Routine Respiratory Exam Comments: Decreased breath sounds at the bases Routine Abdominal Exam Comments: Soft nontender Results Labs 03/05/24 04:25 03/05/24 13:57 Labs: Short CBC 03/04/24 03/05/24 Range/Units 20:00 04:25 WBC 6.3 11.7 H D (3.6-11.0) Thou/mm3 Hgb 17.4 H 15.1 D (12.0-16.0) g/dL Hct 49.5 H 44.8 (36.0-46.0) % Plt Count 202 187 (140-440) Thou/mm3 BMP 03/04/24 03/05/24 03/05/24 20:00 04:25 13:57 Sodium 129 L 132 L Potassium 3.2 L 3.2 L 4.4 D Chloride 93 L 93 L Carbon Dioxide 25.5 27.3 BUN 15 18 Creatinine 0.8 0.9 Glucose 129 H 162 H Calcium 10.7 H 9.7 Cardiac Enzymes 03/04/24 Range/Units 20:00 Troponin I < 0.020 (0.0-0.045) ng/mL Liver Function 03/04/24 03/05/24 Range/Units 20:00 04:25 Total Bilirubin 0.8 0.9 (0.3-1.2) mg/dL AST 22 18 (0-34) U/L ALT 12 12 (10-49) U/L Alkaline Phosphatase 76 66 (46-116) U/L Albumin 4.4 4.3 (3.4-4.8) gm/dL Urine 03/05/24 Range/Units 09:33 Urine Color Yellow (Lt Yel-Yel) Urine Clarity Clear (Clear/Hazy) Urine pH 6.0 (5.0-7.0) Ur Specific [place] 1.026 (1.001-1.035) Urine Protein Trace (Neg - Trace) Urine Glucose (UA) Negative (Negative) Assessment and Plan Additional Assessment & Plan Additional Plan: # Nausea vomiting etiology uncertain could be viral versus infectious Unlikely gastric outlet obstruction Suggestions Since it has stopped on its own lets watch her carefully Holding off any invasive GI workup Recommend liver ultrasound to look for any evidence of gallbladder disease Amylase and lipase level Will follow Other medical problems include # Community acquired pneumonia versus aspiration pneumonia # Anxiety neurosis # Bronchial asthma thank you very much for the opportunity to participate in the care of this patient
--- NOTE | 2024-03-05 22:28 | PC.NURSE ---
seen and examined by Dr. Edu hoffman/ orders made and carried out.
[2024-03-05] MEDS: prednisoLONE OP SUSP 1% 5 ML BTL 1 DROP BOTH EYES (23:23)
[2024-03-05] MEDS: ALPRazoLAM 0.25 MG TABLET PO (23:47)
[2024-03-06] VITALS (13 sets, daily range): BP systolic 125–159; BP diastolic 61–89; PULSE 78–93; RESP 18–26; TEMP 36.1–36.9; O2SAT 91–100
--- NOTE | 2024-03-06 | XR_ITS ---
Examination: Abdomen sonogram, Limited Date and time of exam: March 06, 2024 0837 hours INDICATIONS: Diagnosis gastroenteritis, epigastric pain this week Technique: Real-time nails scale transabdominal sonographic images of the upper abdomen obtained. Findings: No gallstones Gallbladder wall 0.38 cm No edema Common bile duct 0.3 cm Pancreatic head 2.7 cm Liver 17.1 cm fatty infiltration no focal liver lesions Normal hepatopedal portal venous flow Patent IVC IMPRESSION: Negative for cholelithiasis Borderline thickening gallbladder wall, clinical correlation advised, consider HIDA scan follow-up
[2024-03-06] MEDS: METOPROLOL TARTRATE 25 MG TABLET 100 MG PO ×3 (00:18→20:19)
--- NOTE | 2024-03-06 01:45 | PC.NURSE ---
US tech at bedside for liver ultrasound- Pt refused liver ultrasound at this time.
--- NOTE | 2024-03-06 01:51 | PC.NURSE ---
accessed patient's chart to assist main RN.
[2024-03-06 06:04] LABS: Basophils % (Auto) 0 % (0-2.5); Eosinophils % (Auto) 0 % (0-10); Hematocrit 33.7 % (36.0-46.0); Hemoglobin 11.6 g/dL (12.0-16.0); Immature Granulocytes % (Auto) 0 % (0-0); Immature Granulocytes Auto 0.05 Thou/mm3 (0.00-0.00); Lymphocytes # (Auto) 1.2 Thou/mm3 (1.0-4.8); Lymphocytes % (Auto) 10 % (10-50); Mean Corpuscular HGB Conc 34.4 g/dl (31.0-37.0); Mean Corpuscular Hemoglobin 29.8 pg (25.0-35.0); Mean Corpuscular Volume 87 fL (80-100); Monocytes % (Auto) 8 % (0-12); Neutrophils # (Auto) 9.3 Thou/mm3 (1.8-7.7); Neutrophils % (Auto) 80 % (37-80); Nucleated Red Blood Cell % 0 /100 WBC (0); Platelet Count 134 Thou/mm3 (140-440); RDW Standard Deviation 41.2 fL (36.4-46.3); Red Blood Count 3.89 Miln/mm3 (4.00-5.20); White Blood Count 11.5 Thou/mm3 (3.6-11.0)
[2024-03-06] MEDS: PIPER/TAZO 3.375 GM 50 ML IV ×3 (06:25→21:03)
[2024-03-06 06:58] LABS: Alanine Aminotransferase 10 U/L (10-49); Albumin, Serum 3.6 gm/dL (3.4-4.8); Alkaline Phosphatase 64 U/L (46-116); Anion Gap 8 (7-16); Aspartate Amino Transferase 19 U/L (0-34); BUN/Creatinine Ratio 27 Ratio (12-20); Bilirubin,Total 0.6 mg/dL (0.3-1.2); Blood Urea Nitrogen 16 mg/dL (9-23); Calcium 9.1 mg/dL (8.3-10.6); Calcium (Corrected) 9.4 mg/dL (8.5-10.1); Carbon Dioxide 25.2 mMol/L (20.0-31.0); Chloride 101 mMol/L (98-107); Creatinine (Component) 0.6 mg/dL (0.6-1.3); Estimated Creatinine Clearance 80.4 mL/min (>60); Globulin 1.8 gm/dL (2.3-3.5); Glucose 89 mg/dL (74-106); Osmolality,Calculated 268 (275-295); Phosphorous 1.8 mg/dL (2.4-5.1); Potassium 4.3 mMol/L (3.4-5.1); Sodium 134 mMol/L (136-145); Total Protein 5.4 gm/dL (5.7-8.2); eGFR > 60 See Note
[2024-03-06] MEDS: ALBUTEROL/IPRATROPIUM (Duoneb) RT SOL 3 ML NEBU INH ×2 (07:13→12:23)
[2024-03-06] MEDS: BUDESONIDE RT 0.5 MG/2 ML NEBU INH ×2 (07:13→19:53)
[2024-03-06] MEDS: PANTOPRAZOLE INJ 40 MG VIAL IVP (09:38)
[2024-03-06] MEDS: LACTOBACILLUS RHAMNOSUS 1 CAP PO ×2 (09:40→20:21)
[2024-03-06] MEDS: lorataDINE 10 MG TABLET PO (09:40)
[2024-03-06] MEDS: AZITHROMYCIN 250 MG TABLET 500 MG PO (09:40)
[2024-03-06] MEDS: ENOXAPARIN SOD INJ 40 MG/0.4 ML SYRINGE SC (09:41)
[2024-03-06] MEDS: ASPIRIN EC 81 MG TABEC PO (09:41)
[2024-03-06] MEDS: TIMOLOL OP SOL 0.5% 5 ML BTL 1 DROP BOTH EYES ×2 (09:42→20:25)
[2024-03-06] MEDS: prednisoLONE OP SUSP 1% 5 ML BTL 1 DROP BOTH EYES ×2 (09:43→20:36)
[2024-03-06] MEDS: NAPH,KPH MBDB 1 PACKET (1.5 GM) PO (10:13)
[2024-03-06 13:18] LABS: Basophils % (Auto) 0 % (0-2.5); Eosinophils # (Auto) 0.1 Thou/mm3 (0.0-0.5); Eosinophils % (Auto) 1 % (0-10); Hematocrit 34.2 % (36.0-46.0); Hemoglobin 11.5 g/dL (12.0-16.0); Immature Granulocytes % (Auto) 1 % (0-0); Immature Granulocytes Auto 0.06 Thou/mm3 (0.00-0.00); Lymphocytes # (Auto) 1.1 Thou/mm3 (1.0-4.8); Lymphocytes % (Auto) 9 % (10-50); Mean Corpuscular HGB Conc 33.6 g/dl (31.0-37.0); Mean Corpuscular Hemoglobin 29.3 pg (25.0-35.0); Mean Corpuscular Volume 87 fL (80-100); Monocytes # (Auto) 0.9 Thou/mm3 (0.0-0.8); Monocytes % (Auto) 7 % (0-12); Neutrophils % (Auto) 82 % (37-80); Nucleated Red Blood Cell % 0 /100 WBC (0); Platelet Count 194 Thou/mm3 (140-440); RDW Standard Deviation 41.9 fL (36.4-46.3); Red Blood Count 3.93 Miln/mm3 (4.00-5.20); White Blood Count 12.1 Thou/mm3 (3.6-11.0)
--- NOTE | 2024-03-06 13:44 | PC.SS ---
Initial assessment: this is 84 year old female admitted for pnemonia and intractable vomiting and diarrhea. ASW spoke with patient' son Marko to confirm the patient's information. Patient lives at home, alone. Confirmed home address. Patient able to complete ADL's. Patient has cane and walker at home used at time for ambulation. Patient's PCP Dr. Herminia Wadsworth. Patient's emergency contact is her son Marko. Patient to return home upon discharge, son is able to provide transportation if needed. No needs identified at this time. D/c plan: Home Next of kin: sonMarko
[2024-03-06 13:58] LABS: Cocci Serology, IgG Negative (Negative)
--- NOTE | 2024-03-06 14:48 | PC.SS ---
Rounding note: patient ready for discharge.
--- NOTE | 2024-03-06 15:09 | PC.NURSE ---
Patient has discharge order in. Informed patient about discharge planning but patient stated that she is not yet ready to go home and thinks that it is too early for her to go home. MD (Dr. Figueroa) was notified.
--- NOTE | 2024-03-06 15:58 | PC.SS ---
Addendum entered by Louise Clemens 03/07/24 08:48: - SS attempted to make over the phone contact with [facility] at [phone], no available representatives until 0900. SS will try again after 0900. Addendum entered by KRAIG Christensen 03/06/24 17:22: SS update: no fax has been received at this time to initiate [facility] clinicals submitted. Attempted contact with [facility], was only able to leave a voicemail at this time. SS to follow up tomorrow with [facility]. Addendum entered by KRAIG Christensen 03/06/24 16:53: SS update: patient informs she called [facility] to begin the appeal process. Faxed machine checked no faxed received yet. Original Note: SS follow up: met at bed side with the patient. Attending Dr. Post present. Patient was explained she is ready for discharge, however the patient does not feel ready for discharge. Patient informed she would like to appeal the discharge for today. Patient was provided with IMM and explained she has to contact [facility] to begin the appeal process. Patient verbalized understanding. Bed side nurse present and aware the patient is appealing the discharge.
--- NOTE | 2024-03-06 16:06 | PC.NURSE ---
Patient stated that she wanted to take a nap and make phone calls later for her appeal. She want to do her walk test later deisi.
--- NOTE | 2024-03-06 17:10 | PC.PT ---
PT eval only. Patient was xI with bed mobility, transfers, and ambulation with a FWW. Patient is safe to ambulate in the hallway and to the bathroom while using the FWW and a 1 person assist either family or staff for safety. RN notified.
--- NOTE | 2024-03-06 19:27 | PD.RESDS ---
Planned Discharge Date 03/06/24 DS: Providers Provider Date of admission: 03/04/24 23:09 Primary care physician: Herminia San MD Admitting Provider: Luis Pantoja DO Attending Provider on Admission: Kaye Avelar DO Consults: 03/05/24 11:33 Consult to Gastroenterology Routine Comment: Consulting Provider: Juancho Babb 03/05/24 11:34 Referral Physical Therapy Routine Comment: Physician Instructions: Attending Provider on DC: Andrae Figueroa MD Discharging Provider: Andrae Figueroa MD DS: Diagnosis Problem List Completed Was Problem List Reviewed/Reconciled?: Yes Hospital Course Hospital Course Hospital course: Ms. Ortega is an 83-year-old female with a past medical history significant for atrial flutter s/p ablation [address] Flores, asthma, hypertension and breast cancer s/p left mastectomy and radiation in remission, congenital esophageal stricture status post dilation, chronic back pain presented to [facility] on 03/04/24 ED with a chief complaint of nausea, vomiting and abdominal pain. Patient stated a day prior she was having projectile vomiting which caused her to regurgitate and aspirate. Patient denies any recent travels or sick contacts. Chest x-ray revealed bilateral pneumonia, worse on the left side. Patient was started on IV antibiotics and IV fluids. Patient was also having epigastric abdominal pain relieved by vomiting therefore GI was consulted and and recommended for liver ultrasound which was negative for cholelithiasis with Borderline thickening gallbladder wall and Liver 17.1 cm fatty infiltration no focal liver lesions, Normal hepatopedal portal venous flow. An EKG reveals sinus rhythm with first-degree AV block. Patient's intractable vomiting completely resolved, patient is able to ambulate, patient is saturating on room air without requiring any supplemental oxygen. Patient is clinically and hemodynamically stable to be discharged home. Discharge Recommendations Recommend follow up outpatient with primary care physician with in 5 days Recommend follow up with GI specialist Dr. Babb out patient within 2 weeks Continue antibiotics as directed for additional 12 days after discharge Advised to promptly return to ED if symptoms recur or worsen Hospitalization Diagnosis #Viral gastroenteritis #lactic acidosis secondary to intractable vomiting #Hyponatremia #Hypokalemia # Acute hypoxic respiratory failure # community-acquired pneumonia versus aspiration pneumonia # History of asthma #Hx of Congenital esophageal stricture #Chronic back pain #Essential hypertension #History of atrial flutter s/p ablation 2014 #Allergic rhinitis #Keratoconus s/p 9 corneal transplants #Glaucoma # History of breast cancer s/p left mastectomy with IntraOp radiation in remission 2014 # History of squamous cell skin carcinoma s/p resection 2022 Assessment and plan discussed with my attending physician Dr. Sejal Figueroa (PGY-1)- Internal medicine resident Time Spent with Patient Time attestation: Total time spent providing and/or coordinating discharge services: Exam Vital Signs Temp Pulse Resp BP Pulse Ox O2 Del Method O2 Flow Rate 97.2 F 84 18 151/69 H 93 L Room Air 4 03/06/24 16:00 03/06/24 16:00 03/06/24 16:00 03/06/24 16:00 03/06/24 16:00 03/06/24 16:00 03/05/24 12:27 Narrative Exam GENERAL: A&Ox3 . Awake, Not in acute distress NEURO: no focal neurological deficits HEENT: Atraumatic, Normocephalic. mucous membranes moist. Eyes open, symmetrical, & clear HEART: Normal Heart Sounds LUNGS: Clear to auscultation with no wheezing or crackles. ABDOMEN: soft, non-distended, non-tender, bowel sounds heard, no guarding or rebound tenderness SKIN: No Rash or ecchymoses EXTREMITIES: No edema, tenderness, able to move all 4 extremities, pedal pulses palpated Discharge Plan Plan Patient Disposition: HOME (Self Care) Patient condition on transfer: Stable Care Plan Goals: Recommend follow up outpatient with primary care physician with in 5 days Recommend follow up with GI specialist Dr. Babb out patient within 2 weeks Continue antibiotics as directed for additional 12 days after discharge Advised to promptly return to ED if symptoms recur or worsen Prescriptions/Referrals Prescriptions/Med Rec: New amoxicillin-pot clavulanate 875-125 mg tablet 1 tab PO BID 12 Days Qty: 24 0RF Continued gabapentin 600 mg tablet 300 mg PO TID alprazolam 0.5 mg tablet 0.5 mg PO BID PRN (Reason: Anxiety) Rx Instructions: pt always takes Q HS and the other one as needed. potassium chloride 8 mEq tablet extended release 20 meq PO QDAY Rx Instructions: with food omeprazole 20 mg capsule,delayed release(DR/EC) 20 mg PO QDAY Rx Instructions: before a meal furosemide 20 mg tablet 20 mg PO QDAY albuterol sulfate [Ventolin HFA] 90 mcg/actuation HFA aerosol inhaler 2 inh INHALATION Q4HR PRN (Reason: ASTHMA) Patient Comments: INHALE ONE TO TWO PUFFS BY MOUTH FOUR TIMES DAILY aspirin 81 mg Tablet,Delayed Release (Dr/Ec) 81 mg PO QDAY loratadine 10 mg Tablet 10 mg PO QDAY lisinopril-hydrochlorothiazide 20-12.5 mg Tablet 1 tab PO QDAY metoprolol tartrate 50 mg Tablet 100 mg PO BID Rx Instructions: with meals hydrocodone-acetaminophen 5-325 mg Tablet 0.5 tab PO Q6H PRN (Reason: Pain) Rx Instructions: lortab. For lower back pain. biotin 10,000 mcg Capsule 10,000 mcg PO DAILY Rx Instructions: softgel PreserVision AREDS-2 250-90-40-1 mg Capsule 1 tab PO BID Rx Instructions: soft gels cyanocobalamin (vitamin B-12) [Vitamin B-12] 1,000 mcg Tablet 1,000 mcg PO QDAY ksyqngpnebet-tqydeben-zcagnl Tablet 1 tab PO QDAY Gemtesa 75 mg Tablet 75 mg PO QDAY simethicone [Gas Relief (simethicone)] 125 mg Capsule 125 mg PO QDAY PRN (Reason: Abdominal Discomfort) Rx Instructions: over the counter. Only takes on occassions. Softgels. carboxymethylcellulose sodium [Refresh Tears] 0.5 % Drops 1 drp OPHTHALMIC (EYE) BID PRN (Reason: Dry Eyes) Rx Instructions: over the counter. loperamide 2 mg Capsule 2 mg PO PRN PRN (Reason: Diarrhea) Rx Instructions: over the counter. tablet. psyllium Powder 1 tbsp PO PRN PRN (Reason: Constipation) Rx Instructions: 1,500mg per serving. Capsule takes 3 casules. Over the counter. psyllium husk, kate,inulin. Per serving: Psyllium husk powder 1,395mg,inulin(chicory root) 75mg, Kate(kate [place]) 30mg. Trelegy Ellipta 200-62.5-25 mcg Blister With Device 1 inh INHALATION QDAY Referrals: Herminia San MD [Primary Care Provider] - Patient/Caregiver Discharge Instructions Print Language: [place] Stand Alone Forms: Venita Award Info., Patient Portal Info Letter Discharge Order Discharge Orders: Discharge (Routine); Ordered 03/06/24 Ordered By: Andrae Figueroa Quality Discharge Quality Measures none MD Attestestation MD Attestation 84-year-old female with multiple comorbidities including atrial flutter status post ablation, hypertension, breast cancer status post left mastectomy and congenital esophageal strictures status post multiple dilation presented with GI symptoms found to have gastroenteritis less likely viral in nature as studies have been negative. As of now, patient is hemodynamically stable and decision will be to discharge the patient home. Of note, patient will need outpatient GI workup including colonoscopy to rule out microscopic colitis. I reviewed above note and agree with findings and plans. I have also personally examined the patient with medicine team and went over assessment and plan with medical team including biomedical engineering internship and resident physician.
[2024-03-06] MEDS: GABAPENTIN 300 MG CAPSULE PO (20:22)
[2024-03-06] MEDS: MORPHINE SULF INJ 10 MG/ML VIAL 2 MG IVP (20:32)
--- NOTE | 2024-03-06 20:49 | PD.IMPROG ---
Documentation for date of: 03/06/24 Subjective Subjective Interval history: Liver ultrasound shows no cholelithiasis some thickening of the gallbladder wall Nausea vomiting has improved okay to discharge patient home if the nausea vomiting returns, I can do an outpatient upper endoscopy Exam Vital Signs Temp Pulse Resp BP Pulse Ox O2 Del Method O2 Flow Rate 97.8 F 88 21 H 147/72 H 91 L Room Air 4 03/06/24 20:00 03/06/24 20:19 03/06/24 20:00 03/06/24 20:19 03/06/24 20:00 03/06/24 20:00 03/06/24 20:00 Objective Labs 03/06/24 12:46 03/06/24 04:48 Labs: Laboratory Results - last 24 hr 03/04/24 03/06/24 03/06/24 23:58 04:48 12:46 WBC 11.5 H 12.1 H RBC 3.89 L 3.93 L Hgb 11.6 L D 11.5 L Hct 33.7 L D 34.2 L MCV 87 87 MCH 29.8 29.3 MCHC 34.4 33.6 RDW Std Deviation 41.2 41.9 Plt Count 134 L D 194 D Neut % (Auto) 80 82 H Lymph % (Auto) 10 9 L [place] % (Auto) 8 7 Eos % (Auto) 0 1 Baso % (Auto) 0 0 Neut # (Auto) 9.3 H 10.0 H Lymph # (Auto) 1.2 1.1 [place] # (Auto) 1.0 H 0.9 H Eos # (Auto) 0.0 0.1 Baso # (Auto) 0.0 0.0 Immature Gran # (Auto) 0.05 H 0.06 H Absolute Nucleated RBC 0.00 0.00 Immature Gran % 0 1 H Nucleated RBC % 0 0 Sodium 134 L Potassium 4.3 Chloride 101 Carbon Dioxide 25.2 Anion Gap 8 BUN 16 Creatinine 0.6 Estim Creat Clear Calc 80.4 eGFR > 60 BUN/Creatinine Ratio 27 H Glucose 89 D Calculated Osmolality 268 L Calcium 9.1 Corrected Calcium 9.4 Phosphorus 1.8 L Magnesium 2.0 Total Bilirubin 0.6 AST 19 ALT 10 Alkaline Phosphatase 64 Total Protein 5.4 L Albumin 3.6 D Globulin 1.8 L Albumin/Globulin Ratio 2.0 Coccidioides IgG Ab Negative Impressions Impression: Nausea vomiting resolved Thickening of the gallbladder wall no cholelithiasis Okay to discharge patient home If the vomiting returns patient can make an outpatient follow-up with me I will be happy to perform an upper endoscopy at that time including CCK HIDA scan with ejection fraction of the gallbladder Assessment & Plan A&P Narrative # Nausea vomiting etiology uncertain could be viral versus infectious Unlikely gastric outlet obstruction Suggestions Since it has stopped on its own lets watch her carefully Holding off any invasive GI workup Recommend liver ultrasound to look for any evidence of gallbladder disease Amylase and lipase level Will follow Other medical problems include # Community acquired pneumonia versus aspiration pneumonia # Anxiety neurosis # Bronchial asthma thank you very much for the opportunity to participate in the care of this patient Time Spent With Patient Time: Total time spent is greater than 50% in coordination of care (as documented) at patient's floor/unit and/or counseling patient:
[2024-03-06] MEDS: ALPRazoLAM 0.25 MG TABLET PO (21:02)
[2024-03-07] VITALS (14 sets, daily range): BP systolic 107–144; BP diastolic 52–72; PULSE 74–88; RESP 18–21; TEMP 36.3–36.6; O2SAT 90–98; BMI 27.8
[2024-03-07] MEDS: PIPER/TAZO 3.375 GM 50 ML IV ×3 (05:15→21:00)
[2024-03-07 05:48] LABS: Basophils % (Auto) 0 % (0-2.5); Eosinophils # (Auto) 0.3 Thou/mm3 (0.0-0.5); Eosinophils % (Auto) 3 % (0-10); Hematocrit 31.8 % (36.0-46.0); Hemoglobin 10.7 g/dL (12.0-16.0); Immature Granulocytes % (Auto) 1 % (0-0); Immature Granulocytes Auto 0.06 Thou/mm3 (0.00-0.00); Lymphocytes # (Auto) 1.3 Thou/mm3 (1.0-4.8); Lymphocytes % (Auto) 13 % (10-50); Mean Corpuscular HGB Conc 33.6 g/dl (31.0-37.0); Mean Corpuscular Hemoglobin 29.8 pg (25.0-35.0); Mean Corpuscular Volume 89 fL (80-100); Monocytes # (Auto) 0.7 Thou/mm3 (0.0-0.8); Monocytes % (Auto) 7 % (0-12); Neutrophils # (Auto) 7.6 Thou/mm3 (1.8-7.7); Neutrophils % (Auto) 75 % (37-80); Nucleated Red Blood Cell % 0 /100 WBC (0); Platelet Count 141 Thou/mm3 (140-440); RDW Standard Deviation 43.7 fL (36.4-46.3); Red Blood Count 3.59 Miln/mm3 (4.00-5.20); White Blood Count 10.1 Thou/mm3 (3.6-11.0)
[2024-03-07 06:44] LABS: Alanine Aminotransferase 9 U/L (10-49); Albumin, Serum 3.5 gm/dL (3.4-4.8); Albumin/Globulin Ratio 1.9 (1.2-2.2); Alkaline Phosphatase 59 U/L (46-116); Anion Gap 7 (7-16); Aspartate Amino Transferase 18 U/L (0-34); BUN/Creatinine Ratio 20 Ratio (12-20); Bilirubin,Total 0.7 mg/dL (0.3-1.2); Blood Urea Nitrogen 12 mg/dL (9-23); Calcium 8.8 mg/dL (8.3-10.6); Calcium (Corrected) 9.2 mg/dL (8.5-10.1); Carbon Dioxide 25.6 mMol/L (20.0-31.0); Chloride 101 mMol/L (98-107); Creatinine (Component) 0.6 mg/dL (0.6-1.3); Estimated Creatinine Clearance 80.4 mL/min (>60); Globulin 1.8 gm/dL (2.3-3.5); Glucose 73 mg/dL (74-106); Magnesium 1.9 mg/dL (1.6-2.6); Osmolality,Calculated 266 (275-295); Potassium 4.1 mMol/L (3.4-5.1); Sodium 134 mMol/L (136-145); Total Protein 5.3 gm/dL (5.7-8.2); eGFR > 60 See Note
[2024-03-07] MEDS: BUDESONIDE RT 0.5 MG/2 ML NEBU INH ×2 (07:42→19:00)
[2024-03-07] MEDS: METOPROLOL TARTRATE 25 MG TABLET 100 MG PO ×2 (09:09→20:55)
[2024-03-07] MEDS: ASPIRIN EC 81 MG TABEC PO (09:09)
[2024-03-07] MEDS: LACTOBACILLUS RHAMNOSUS 1 CAP PO ×2 (09:09→20:55)
[2024-03-07] MEDS: AZITHROMYCIN 250 MG TABLET 500 MG PO (09:09)
[2024-03-07] MEDS: lorataDINE 10 MG TABLET PO (09:09)
[2024-03-07] MEDS: PANTOPRAZOLE INJ 40 MG VIAL IVP (09:10)
[2024-03-07] MEDS: ENOXAPARIN SOD INJ 40 MG/0.4 ML SYRINGE SC (09:15)
[2024-03-07] MEDS: prednisoLONE OP SUSP 1% 5 ML BTL 1 DROP BOTH EYES ×2 (09:15→20:56)
[2024-03-07] MEDS: TIMOLOL OP SOL 0.5% 5 ML BTL 1 DROP BOTH EYES ×2 (09:15→20:55)
[2024-03-07] MEDS: MORPHINE SULF INJ 10 MG/ML VIAL 2 MG IVP (09:19)
--- NOTE | 2024-03-07 09:45 | PC.SS ---
ANITA received a call from Bhavna from [facility] on behalf of [employer]. ANITA informed Ruby is off today and parts data writer is covering for her. Per Bhavna pt did not have Medicare ID# which is why appeal could not be completed. ANITA informed Bhavna HOWARD spoke to pt earlier this morning and she was planning on calling back around 0900 and was aware the need to call back to begin appeal process.
--- NOTE | 2024-03-07 09:58 | PC.SS ---
Addendum entered by Louise Clemens 03/07/24 11:06: DME order submitted via [facility]AN[facility] Addendum entered by Louise Clemens 03/07/24 10:00: SS updated Original Note: ANITA was informed by Alison HOWARD that PT-Byron emailed late yesterday that pt will need FWW and PT-MARGIE
--- NOTE | 2024-03-07 11:24 | PC.SS ---
All paperwork uploaded onto [employer], Confirmation saved as well.
--- NOTE | 2024-03-07 13:07 | PC.CM ---
Addendum entered by Amy Willingham 03/07/24 14:43: [id number] Booked referral with [facility]. Original Note: [id number] ASWAmy sent referral for Home Health via [employer] [employer].
--- NOTE | 2024-03-07 14:18 | PC.SS ---
Walkers The diagnosis of breast cancer creates mobility limitation that significantly impairs ability to participate in the patients activities of daily living either in their entirety, or in a reasonable time frame. Also the patient is able to safely use the walker and the patient?s mobility is sufficiently resolved with the use of the walker and cane has been ruled out.
--- NOTE | 2024-03-07 14:43 | PD.RESPRO ---
Documentation for date of: 03/07/24 Subjective Subjective Interval history: Patient seen at bedside today and is still feeling ill. She remains on room air but has had decreased appetite. On physical examination mild crackles heard in the left lung base and we will continue with IV antibiotics until her appeal has resolved. We will also change her breathing treatments to just albuterol without ipratropium. Also resume patient's Trelegy for breathing treatments.Patient will benefit from home health PT Exam Vital Signs Temp Pulse Resp BP Pulse Ox O2 Del Method O2 Flow Rate 97.3 F 78 18 144/70 H 98 Nasal Cannula 2 03/07/24 12:00 03/07/24 12:49 03/07/24 12:00 03/07/24 12:00 03/07/24 12:00 03/07/24 12:00 03/07/24 12:00 Narrative Exam GENERAL: A&Ox3 . Awake, Not in acute distress NEURO: no focal neurological deficits HEENT: Atraumatic, Normocephalic. mucous membranes moist. Eyes open, symmetrical, & clear HEART: Normal Heart Sounds LUNGS: Clear to auscultation with no wheezing or crackles. ABDOMEN: soft, non-distended, non-tender, bowel sounds heard, no guarding or rebound tenderness SKIN: No Rash or ecchymoses EXTREMITIES: No edema, tenderness, able to move all 4 extremities, pedal pulses palpated Objective Labs 03/07/24 05:12 03/07/24 05:12 Labs: Laboratory Results - last 24 hr 03/07/24 05:12 WBC 10.1 RBC 3.59 L Hgb 10.7 L Hct 31.8 L MCV 89 MCH 29.8 MCHC 33.6 RDW Std Deviation 43.7 Plt Count 141 D Neut % (Auto) 75 Lymph % (Auto) 13 [place] % (Auto) 7 Eos % (Auto) 3 Baso % (Auto) 0 Neut # (Auto) 7.6 Lymph # (Auto) 1.3 [place] # (Auto) 0.7 Eos # (Auto) 0.3 Baso # (Auto) 0.0 Immature Gran # (Auto) 0.06 H Absolute Nucleated RBC 0.00 Immature Gran % 1 H Nucleated RBC % 0 Sodium 134 L Potassium 4.1 Chloride 101 Carbon Dioxide 25.6 Anion Gap 7 BUN 12 Creatinine 0.6 Estim Creat Clear Calc 80.4 eGFR > 60 BUN/Creatinine Ratio 20 Glucose 73 L Calculated Osmolality 266 L Calcium 8.8 Corrected Calcium 9.2 Phosphorus 3.0 Magnesium 1.9 Total Bilirubin 0.7 AST 18 ALT 9 L Alkaline Phosphatase 59 Total Protein 5.3 L Albumin 3.5 Globulin 1.8 L Albumin/Globulin Ratio 1.9 Quality Measures Quality Measures none Advance care planning discussed with:: patient Assessment & Plan Assessment Current Active Medications: Generic Name Dose Route Start Last Admin Trade Name Samara PRN Reason Stop Dose Admin Acetaminophen 1,000 mg 03/04/24 23:09 Acetaminophen 325 Mg Tablet PO 04/03/24 23:08 Q6H PRN Fever >100.3 or pain Albuterol 5 mg 03/07/24 19:00 Albuterol Rt 2.5 Mg/0.5 Ml Nebu INH 04/06/24 18:59 Q6HRRT JOSE D Alprazolam 0.25 mg 03/05/24 00:41 03/06/24 21:02 Alprazolam 0.25 Mg Tablet PO 03/10/24 00:40 0.25 mg BID PRN Administration ANXIETY Aspirin 81 mg 03/05/24 09:00 03/07/24 09:09 Aspirin Ec 81 Mg Tabec PO 04/04/24 08:59 81 mg QDAY JOSE D Administration Azithromycin 500 mg 03/06/24 09:00 03/07/24 09:09 Azithromycin 250 Mg Tablet PO 03/10/24 09:01 500 mg QDAY JOS ED Administration Protocol Budesonide 0.5 mg 03/05/24 07:00 03/07/24 07:42 Budesonide Rt 0.5 Mg/2 Ml Nebu INH 04/04/24 06:59 0.5 mg BIDRT JOSE D Administration Gemtesa 75 Mg Tablet 0 ea 03/06/24 14:15 03/07/24 09:09 PO 04/05/24 14:14 1 tablet QDAY JOSE D Administration Enoxaparin Sodium 40 mg 03/05/24 09:00 03/07/24 09:15 Enoxaparin Sod Inj 40 Mg/0.4 Ml Syringe SC 03/19/24 08:59 40 mg QDAY JOSE D Administration Gabapentin 300 mg 03/05/24 00:40 03/06/24 20:22 Gabapentin 300 Mg Capsule PO 04/04/24 00:44 300 mg TID PRN Administration Back or leg pain Protocol Piperacillin/Tazobactam/Dextrose 50 mls @ 12.5 mls/hr 03/05/24 07:00 03/07/24 14:23 Zosyn IV 03/12/24 06:59 12.5 mls/hr Q8HR JOSE D Administration Protocol Lactobacillus Rhamnosus 1 cap 03/05/24 09:00 03/07/24 09:09 Lactobacillus Rhamnosus 1 Cap PO 03/12/24 08:59 1 cap BID JOSE D Administration Loratadine 10 mg 03/05/24 09:00 03/07/24 09:09 Loratadine 10 Mg Tablet PO 04/04/24 08:59 10 mg QDAY JOSE D Administration Metoprolol Tartrate 100 mg 03/06/24 09:00 03/07/24 09:09 Metoprolol Tartrate 25 Mg Tablet PO 04/05/24 08:59 100 mg BID JOSE D Administration Morphine Sulfate 2 mg 03/04/24 23:09 03/07/24 09:19 Morphine Sulf Inj 10 Mg/Ml Vial IVP 03/09/24 23:08 2 mg Q4H PRN Administration Breakthrough Pain Home Medication- 1 inh 03/06/24 12:15 03/06/24 12:23 Please Speak With IH 04/05/24 12:14 Not Given Patient Caregiver To QDAY JOSE D Have Rx Brought To [facility] Ondansetron HCl 4 mg 03/04/24 23:09 Ondansetron Inj 2 Mg/Ml Inj 2 Ml IV 04/03/24 23:08 Q6H PRN NAUSEA OR VOMITING Protocol Pantoprazole Sodium 40 mg 03/04/24 23:15 03/07/24 09:10 Pantoprazole Inj 40 Mg Vial IVP 04/03/24 23:14 40 mg QDAY JOSE D Administration Prednisolone Acetate 1 drop 03/05/24 09:00 03/07/24 09:15 Prednisolone Op Susp 1% 5 Ml Btl BOTH EYES 04/04/24 08:59 1 drop BID JOSE D Administration Timolol Maleate 1 drop 03/05/24 09:00 03/07/24 09:15 Timolol Op Tabitha 0.5% 5 Ml Btl BOTH EYES 04/04/24 08:59 1 drop BID JOSE D Administration Plan Ms. Ortega is an 83-year-old female with a past medical history significant for atrial flutter s/p ablation [address] Flores, asthma, hypertension and breast cancer s/p left mastectomy and radiation in remission, congenital esophageal stricture status post dilation, chronic back pain presented to the ED with a chief complaint of nausea, vomiting and abdominal pain. #Viral gastroenteritis #lactic acidosis secondary to intractable vomiting #Hyponatremia #Hypokalemia Patient had 6 episodes of vomiting DDx: Viral gastroenteritis, medication side effect, food poisoning, pancreatitis On admission NA 129, K3.2, LA 2.6 Plan: Regular diet ? Lactated Ringer's IV fluid at 80 cc/hour given in the ED ? Lactobacilli 1 cap p.o. twice daily ? KCl 40 mEq IV x 2 given ? Ondansetron 4 Mg IV Q6 hourly as needed. ? Stool studies ordered including Giardia, H. pylori, C. difficile, calprotectin, norovirus, stool culture and stool for WBCs. # Acute hypoxic respiratory failure # community-acquired pneumonia versus aspiration pneumonia # History of asthma Patient presented with a cough for 1 day with possible aspiration of vomitus. Bibasilar wheezing on auscultation Patient uses inhalers at home Patient is on 5 L oxygen via nasal cannula and Chest x-ray significant for bibasilar consolidation worse on the left On admission PSI/PORT : 1 of 2 points. Risk class IV. Hospitalization recommended based on risk Plan: ? Supplemental O2 as needed ? Aspiration precautions -Sputum culture ordered. ? RSV negative ? Albuterol and Budesonide every 6 hourly ? Pulmicort nebs twice daily ? Started on Zosyn 4.5 g IV every 6 hourly to cover for aspiration pneumonia on [03/05? ? Started on azithromycin 500 Mg IV daily [03/04? # Congenital esophageal stricture -Patient states she has a history of congenital esophageal stricture and has undergone esophageal dilation with Dr. Babb many times -Patient's last dilation was sometime ago and has been unable to get an appointment -Patient has been choking on her food frequently causing her to regurgitate and aspirate Plan: ? GI consulted, will follow up with outpatient EGD #Chronic back pain -20 years ago patient fell off a mule and has been experiencing chronic back pain and nerve damage since patient sees Dr. Pedersen and Dr. Auguste outpatient -Patient uses a walker or a cane to ambulate around the house -Patient's home medications include gabapentin 300mg p.o. 3 times daily Plan: -Physical therapy ordered -Waiting med rec's to resume home medications #Essential hypertension #History of atrial flutter s/p ablation 2014 Home medication include Metoprolol XL 75 Mg p.o. twice daily, lisinopril 25 Mg p.o. daily Patient blood pressure is stable at 108/67, will hold antihypertensive therapy for now we will continue to monitor blood pressure #Allergic rhinitis #Keratoconus s/p 9 corneal transplants #Glaucoma Home medication timolol eyedrops and Pred forte eyedrops. Plan: ? Resume home medication timolol and Pred forte eyedrops # History of breast cancer s/p left mastectomy with IntraOp radiation in remission 2014 # History of squamous cell skin carcinoma s/p resection 2022 Health maintenance: Disposition: IV antibiotics, nebulizers, stool studies Diet: Regular Diet Lines: pIVs GI Prophylaxis: Pantoprazole IV Thrombo Prophylaxis: Enoxaparin Code status: FULL CODE Plan of care discussed with supervising attending Dr. Sejal Graham M.D. PGY-3 Attending Provider Attestation/Addendum 84-year-old female with multiple comorbidities including atrial flutter status post ablation, hypertension, breast cancer status post left mastectomy and congenital esophageal strictures status post multiple dilation presented with GI symptoms found to have gastroenteritis less likely viral in nature as studies have been negative. As of now, patient is hemodynamically stable and decision will be to discharge the patient home. Of note, patient will need outpatient GI workup including colonoscopy to rule out microscopic colitis. Overnight, patient was kept overnight as patient appealed discharge. Will continue monitoring the patient pending appeal and currently on 1-2 L for her aspiration pneumonitis and plan to continue IV antibiotic therapy. I reviewed above note and agree with findings and plans. I have also personally examined the patient with medicine team and went over assessment and plan with medical team including culinary internship and resident physician.
--- NOTE | 2024-03-07 14:44 | PC.CM ---
Addendum entered by Erica Medel RN 03/10/24 09:18: I sent d/c summary and start of care 03/10. Addendum entered by Fidel Miranda RN 03/07/24 14:45: pending start of care date with Sascha HANSON and need to send dc orders and dc summary. Original Note: initial HH referral sent by SS. Caicedo accepted and it was booked by Amy QUIROS
--- NOTE | 2024-03-07 16:53 | PD.IMPROG ---
Documentation for date of: 03/07/24 Subjective Subjective Interval history: No nausea vomiting Still appearing sick and short of breath Course in the hospital has been extended Exam Vital Signs Temp Pulse Resp BP Pulse Ox O2 Del Method O2 Flow Rate 97.3 F 76 18 132/72 H 95 Nasal Cannula 2 03/07/24 15:54 03/07/24 15:54 03/07/24 15:54 03/07/24 15:54 03/07/24 15:54 03/07/24 15:54 03/07/24 15:54 Objective Labs 03/07/24 05:12 03/07/24 05:12 Labs: Laboratory Results - last 24 hr 03/07/24 05:12 WBC 10.1 RBC 3.59 L Hgb 10.7 L Hct 31.8 L MCV 89 MCH 29.8 MCHC 33.6 RDW Std Deviation 43.7 Plt Count 141 D Neut % (Auto) 75 Lymph % (Auto) 13 [place] % (Auto) 7 Eos % (Auto) 3 Baso % (Auto) 0 Neut # (Auto) 7.6 Lymph # (Auto) 1.3 [place] # (Auto) 0.7 Eos # (Auto) 0.3 Baso # (Auto) 0.0 Immature Gran # (Auto) 0.06 H Absolute Nucleated RBC 0.00 Immature Gran % 1 H Nucleated RBC % 0 Sodium 134 L Potassium 4.1 Chloride 101 Carbon Dioxide 25.6 Anion Gap 7 BUN 12 Creatinine 0.6 Estim Creat Clear Calc 80.4 eGFR > 60 BUN/Creatinine Ratio 20 Glucose 73 L Calculated Osmolality 266 L Calcium 8.8 Corrected Calcium 9.2 Phosphorus 3.0 Magnesium 1.9 Total Bilirubin 0.7 AST 18 ALT 9 L Alkaline Phosphatase 59 Total Protein 5.3 L Albumin 3.5 Globulin 1.8 L Albumin/Globulin Ratio 1.9 Impressions Impression: # Nausea vomiting resolved # shortness of breath on aggressive bronchodilator treatment Continue current management Assessment & Plan A&P Narrative # Nausea vomiting etiology uncertain could be viral versus infectious Unlikely gastric outlet obstruction Suggestions Since it has stopped on its own lets watch her carefully Holding off any invasive GI workup Recommend liver ultrasound to look for any evidence of gallbladder disease Amylase and lipase level Will follow Other medical problems include # Community acquired pneumonia versus aspiration pneumonia # Anxiety neurosis # Bronchial asthma thank you very much for the opportunity to participate in the care of this patient Time Spent With Patient Time: Total time spent is greater than 50% in coordination of care (as documented) at patient's floor/unit and/or counseling patient:
[2024-03-07] MEDS: ALBUTEROL RT 2.5 MG/0.5 ML NEBU INH (19:00)
--- NOTE | 2024-03-07 22:21 | PC.NURSE ---
Placed hat in pt restroom for stool collection for C. Diff.
[2024-03-08] VITALS (15 sets, daily range): BP systolic 128–153; BP diastolic 64–82; PULSE 73–96; RESP 15–24; TEMP 36.4–36.7; O2SAT 91–99
--- NOTE | 2024-03-08 04:42 | PC.NURSE ---
Md Reddy made aware hortensia pt still has diarrhea and requesting meds to stop her diarrhea, Banatrol given to pts.
[2024-03-08] MEDS: PIPER/TAZO 3.375 GM 50 ML IV ×3 (05:08→21:14)
[2024-03-08] MEDS: MORPHINE SULF INJ 10 MG/ML VIAL 2 MG IVP ×4 (06:17→21:12)
[2024-03-08] MEDS: ALBUTEROL RT 2.5 MG/0.5 ML NEBU INH ×3 (07:42→18:20)
[2024-03-08] MEDS: BUDESONIDE RT 0.5 MG/2 ML NEBU INH ×2 (07:42→18:20)
[2024-03-08] MEDS: TIMOLOL OP SOL 0.5% 5 ML BTL 1 DROP BOTH EYES ×2 (09:03→20:43)
[2024-03-08] MEDS: prednisoLONE OP SUSP 1% 5 ML BTL 1 DROP BOTH EYES ×2 (09:03→20:49)
[2024-03-08] MEDS: ASPIRIN EC 81 MG TABEC PO (09:04)
[2024-03-08] MEDS: lorataDINE 10 MG TABLET PO (09:04)
[2024-03-08] MEDS: METOPROLOL TARTRATE 25 MG TABLET 100 MG PO ×2 (09:04→20:44)
[2024-03-08] MEDS: AZITHROMYCIN 250 MG TABLET 500 MG PO (09:04)
[2024-03-08] MEDS: LACTOBACILLUS RHAMNOSUS 1 CAP PO ×2 (09:04→20:45)
[2024-03-08] MEDS: PANTOPRAZOLE INJ 40 MG VIAL IVP (09:05)
[2024-03-08] MEDS: ENOXAPARIN SOD INJ 40 MG/0.4 ML SYRINGE SC (09:05)
[2024-03-08] MEDS: ALPRazoLAM 0.25 MG TABLET PO ×2 (09:06→20:45)
[2024-03-08 10:58] LABS: Stool for WBCs Negative (Negative)
--- NOTE | 2024-03-08 11:34 | PC.NURSE ---
spoke with pharmacy, pt's own Gemtesa order was changed yesterday but no new label was sent
--- NOTE | 2024-03-08 11:40 | PC.NURSE ---
so when pharmacy brought the new label for gemtesa i scanned it again, but the scan still shows against the discontinued order, only 1 tablet was given
[2024-03-08 12:18] LABS: Clostridium Difficile PCR Negative (Negative)
[2024-03-08] MEDS: SODIUM CHLORIDE RT SOL 0.9% 3 ML NEBU INH (12:59)
--- NOTE | 2024-03-08 16:15 | PC.SS ---
SS went to speak to pt in regards to Appeal Outcome, Pardeep is in favor with Hospital per online portal and pt liability will start 03/09/24. Per pt she has not received a call from [facility] yet and she wishes to wait until tomorrow to leave.
--- NOTE | 2024-03-08 17:56 | ESPR_ITS ---
<Statement entered by Eris Post MD - 03/14/24 13:40> I reviewed above note and agree with findings and plans. I have also personally examined the patient with medicine team and went over assessment and plan with medical team including sports management internship and resident physician. Documentation for date of: 03/08/24 Subjective Subjective Interval history: 03/08: No acute overnight events patient is seen and examined at bedside this morning. Patient is discharged on 03/06 however patient still remains hospitalized due to appeal process which is still pending decision. Patient is on room air tolerating oral diet. Patient states she continues to have diarrhea for months, patient is advised to follow-up outpatient colonoscopy to rule out microscopic colitis. Management remains the same. Patient has no complaints. Exam Vital Signs Temp Pulse Resp BP Pulse Ox O2 Del Method O2 Flow Rate 97.8 F 85 18 128/76 93 L Room Air 2 03/08/24 16:00 03/08/24 16:14 03/08/24 16:00 03/08/24 16:00 03/08/24 16:00 03/08/24 16:00 03/08/24 12:00 Narrative Exam GENERAL: A&Ox3 . Awake, Not in acute distress NEURO: no focal neurological deficits HEENT: Atraumatic, Normocephalic. mucous membranes moist. Eyes open, symmetrical, & clear HEART: Normal Heart Sounds LUNGS: Clear to auscultation with no wheezing or crackles. ABDOMEN: soft, non-distended, non-tender, bowel sounds heard, no guarding or rebound tenderness SKIN: No Rash or ecchymoses EXTREMITIES: No edema, tenderness, able to move all 4 extremities, pedal pulses palpated Objective Labs 03/07/24 05:12 03/07/24 05:12 Labs: Laboratory Results - last 24 hr 03/08/24 01:59 Stool for White Cells Negative Stl C. diff Tox B Gene Negative Quality Measures Quality Measures none Advance care planning discussed with:: patient Assessment & Plan Assessment Current Active Medications: Generic Name Dose Route Start Last Admin Trade Name Freq PRN Reason Stop Dose Admin Acetaminophen 1,000 mg 03/07/24 16:00 Acetaminophen 500 Mg Tablet PO 04/03/24 23:08 Q6H PRN Fever >100.3 or pain(1-3) Albuterol 2.5 mg 03/07/24 19:00 03/08/24 12:58 Albuterol Rt 2.5 Mg/0.5 Ml Nebu INH 04/06/24 18:59 2.5 mg Q6HRRT JOSE D Administration Alprazolam 0.25 mg 03/05/24 00:41 03/08/24 09:06 Alprazolam 0.25 Mg Tablet PO 03/10/24 00:40 0.25 mg BID PRN Administration ANXIETY Aspirin 81 mg 03/05/24 09:00 03/08/24 09:04 Aspirin Ec 81 Mg Tabec PO 04/04/24 08:59 81 mg QDAY JOSE D Administration Azithromycin 500 mg 03/06/24 09:00 03/08/24 09:04 Azithromycin 250 Mg Tablet PO 03/10/24 09:01 500 mg QDAY JOSE D Administration Protocol Budesonide 0.5 mg 03/05/24 07:00 03/08/24 07:42 Budesonide Rt 0.5 Mg/2 Ml Nebu INH 04/04/24 06:59 0.5 mg BIDRT JOSE D Administration Home Medication- 0 ea 03/08/24 06:00 03/08/24 06:14 Please Speak With PO 04/07/24 05:59 Not Given Patient Caregiver To QDAYRT JOSE D Have Rx Brought To [facility] Gemtesa 75 Mg Tablet 0 ea 03/08/24 09:00 03/08/24 11:38 PO 04/07/24 08:59 1 tablet QDAY JOSE D Administration Enoxaparin Sodium 40 mg 03/05/24 09:00 03/08/24 09:05 Enoxaparin Sod Inj 40 Mg/0.4 Ml Syringe SC 03/19/24 08:59 40 mg QDAY JOSE D Administration Gabapentin 300 mg 03/05/24 00:40 03/06/24 20:22 Gabapentin 300 Mg Capsule PO 04/04/24 00:44 300 mg TID PRN Administration Back or leg pain Protocol Piperacillin/Tazobactam/Dextrose 50 mls @ 12.5 mls/hr 03/05/24 07:00 03/08/24 14:41 Zosyn IV 03/12/24 06:59 12.5 mls/hr Q8HR JOSE D Administration Protocol Lactobacillus Rhamnosus 1 cap 03/05/24 09:00 03/08/24 09:04 Lactobacillus Rhamnosus 1 Cap PO 03/12/24 08:59 1 cap BID JOSE D Administration Loratadine 10 mg 03/05/24 09:00 03/08/24 09:04 Loratadine 10 Mg Tablet PO 04/04/24 08:59 10 mg QDAY JOSE D Administration Metoprolol Tartrate 100 mg 03/06/24 09:00 03/08/24 09:04 Metoprolol Tartrate 25 Mg Tablet PO 04/05/24 08:59 100 mg BID JOSE D Administration Morphine Sulfate 2 mg 03/07/24 16:00 03/08/24 17:09 Morphine Sulf Inj 10 Mg/Ml Vial IVP 03/09/24 23:08 2 mg Q4H PRN Administration Breakthrough Pain Home Medication- 1 inh 03/06/24 12:15 03/08/24 13:02 Please Speak With IH 04/05/24 12:14 Not Given Patient Caregiver To QDAY JOSE D Have Rx Brought To [facility] Ondansetron HCl 4 mg 03/04/24 23:09 Ondansetron Inj 2 Mg/Ml Inj 2 Ml IV 04/03/24 23:08 Q6H PRN NAUSEA OR VOMITING Protocol Pantoprazole Sodium 40 mg 03/04/24 23:15 03/08/24 09:05 Pantoprazole Inj 40 Mg Vial IVP 04/03/24 23:14 40 mg QDAY JOSE D Administration Prednisolone Acetate 1 drop 03/05/24 09:00 03/08/24 09:03 Prednisolone Op Susp 1% 5 Ml Btl BOTH EYES 04/04/24 08:59 1 drop BID JOSE D Administration Sodium Chloride 3 ml 03/07/24 14:55 03/08/24 12:59 Sodium Chloride Rt Tabitha 0.9% 3 Ml Nebu INH 04/06/24 14:54 3 ml PRN PRN Administration SOLN Timolol Maleate 1 drop 03/05/24 09:00 03/08/24 09:03 Timolol Op Tabitha 0.5% 5 Ml Btl BOTH EYES 04/04/24 08:59 1 drop BID JOSE D Administration Plan Ms. Ortega is an 83-year-old female with a past medical history significant for atrial flutter s/p ablation [address] Flores, asthma, hypertension and breast cancer s/p left mastectomy and radiation in remission, congenital esophageal stricture status post dilation, chronic back pain presented to the ED with a chief complaint of nausea, vomiting and abdominal pain. #Viral gastroenteritis #lactic acidosis secondary to intractable vomiting- resolved #Hyponatremia #Hypokalemia Patient had 6 episodes of vomiting DDx: Viral gastroenteritis, medication side effect, food poisoning, pancreatitis On admission NA 129, K3.2, LA 2.6 Patient complains of chronic diarrhea Plan: Regular diet ? Lactated Ringer's IV fluid at 80 cc/hour given in the ED ? Lactobacilli 1 cap p.o. twice daily ? KCl 40 mEq IV x 2 given ? Ondansetron 4 Mg IV Q6 hourly as needed. -Patient will need outpatient colonoscopy to rule out microscopic colitis ? Stool studies ordered including Giardia, H. pylori, C. difficile (negative), calprotectin, norovirus, stool culture and stool for WBCs (negative) # Acute hypoxic respiratory failure # community-acquired pneumonia versus aspiration pneumonia # History of asthma Patient presented with a cough for 1 day with possible aspiration of vomitus. Bibasilar wheezing on auscultation Patient uses inhalers at home Patient is on 5 L oxygen via nasal cannula and Chest x-ray significant for bibasilar consolidation worse on the left On admission PSI/PORT : 1 of 2 points. Risk class IV. Hospitalization recommended based on risk Plan: ? Supplemental O2 as needed ? Aspiration precautions -Sputum culture ordered. ? RSV negative ? Albuterol and Budesonide every 6 hourly ? Pulmicort nebs twice daily ? Started on Zosyn 4.5 g IV every 6 hourly to cover for aspiration pneumonia on [03/05? ? Started on azithromycin 500 Mg IV daily [03/04? # Congenital esophageal stricture -Patient states she has a history of congenital esophageal stricture and has undergone esophageal dilation with Dr. Babb many times -Patient's last dilation was sometime ago and has been unable to get an appointment -Patient has been choking on her food frequently causing her to regurgitate and aspirate Plan: ? GI consulted, will follow up with outpatient EGD #Chronic back pain -20 years ago patient fell off a mule and has been experiencing chronic back pain and nerve damage since patient sees Dr. Pedersen and Dr. Auguste outpatient -Patient uses a walker or a cane to ambulate around the house -Patient's home medications include gabapentin 300mg p.o. 3 times daily Plan: -Physical therapy ordered -Waiting med rec's to resume home medications #Essential hypertension #History of atrial flutter s/p ablation 2014 Home medication include Metoprolol XL 75 Mg p.o. twice daily, lisinopril 25 Mg p.o. daily Patient blood pressure is stable at 108/67, will hold antihypertensive therapy for now we will continue to monitor blood pressure #Allergic rhinitis #Keratoconus s/p 9 corneal transplants #Glaucoma Home medication timolol eyedrops and Pred forte eyedrops. Plan: ? Resume home medication timolol and Pred forte eyedrops # History of breast cancer s/p left mastectomy with IntraOp radiation in remission 2014 # History of squamous cell skin carcinoma s/p resection 2022 Health maintenance: Disposition: IV antibiotics, nebulizers, stool studies Diet: Regular Diet Lines: pIVs GI Prophylaxis: Pantoprazole IV Thrombo Prophylaxis: Enoxaparin Code status: FULL CODE Assessment and plan discussed with my attending physician Dr. Sejal Figueroa (PGY-1)- Internal medicine resident
--- NOTE | 2024-03-08 18:08 | PD.IMPROG ---
Documentation for date of: 03/08/24 Subjective Subjective Interval history: nausea vomiting resolved diarrhea still present most days Exam Vital Signs Temp Pulse Resp BP Pulse Ox O2 Del Method O2 Flow Rate 97.8 F 85 18 128/76 93 L Room Air 2 03/08/24 16:00 03/08/24 16:14 03/08/24 16:00 03/08/24 16:00 03/08/24 16:00 03/08/24 16:00 03/08/24 12:00 Objective Labs 03/07/24 05:12 03/07/24 05:12 Labs: Laboratory Results - last 24 hr 03/08/24 01:59 Stool for White Cells Negative Stl C. diff Tox B Gene Negative Impressions Impression: # nausea vomiting resolved # Diarrhea outpatient colonoscopy if diarrhea continues continue current management Assessment & Plan A&P Narrative # Nausea vomiting etiology uncertain could be viral versus infectious Unlikely gastric outlet obstruction Suggestions Since it has stopped on its own lets watch her carefully Holding off any invasive GI workup Recommend liver ultrasound to look for any evidence of gallbladder disease Amylase and lipase level Will follow Other medical problems include # Community acquired pneumonia versus aspiration pneumonia # Anxiety neurosis # Bronchial asthma thank you very much for the opportunity to participate in the care of this patient Time Spent With Patient Time: Total time spent is greater than 50% in coordination of care (as documented) at patient's floor/unit and/or counseling patient:
[2024-03-09] VITALS (7 sets, daily range): BP systolic 146–168; BP diastolic 81–92; PULSE 75–97; RESP 17–97; TEMP 36.2–36.6; O2SAT 92–99
[2024-03-09] MEDS: MORPHINE SULF INJ 10 MG/ML VIAL 2 MG IVP (04:42)
[2024-03-09] MEDS: PIPER/TAZO 3.375 GM 50 ML IV (05:12)
[2024-03-09] MEDS: ALBUTEROL RT 2.5 MG/0.5 ML NEBU INH (07:27)
[2024-03-09] MEDS: BUDESONIDE RT 0.5 MG/2 ML NEBU INH (07:28)
--- NOTE | 2024-03-09 09:23 | PC.SS ---
Addendum entered by Alison Sagastume 03/09/24 11:59: SS received call from pt who now is requesting SNF. Pt is aware PASRR assessment requires to be closed before going to SNF. SS has received call from Delmar at [facility] who is aware pt will dc today. However, Delmar explained she will work on PASRR assessment. SS called and spoke to Rahel Camp from [facility] who is aware pt is ready for d/c and PASRR assessment is pending. Per Yasmine Camp they are reviewing patient's information. Pt is aware. Patient's 2nd choice is [facility]. SS has spoken to Joyce from [facility] they can accept pt today. Pt is requesting to wait for PASRR assessment to close to go to SNF. Son is at bedside and is also aware. Addendum entered by Alison Sagastume 03/09/24 10:28: Pt was [facility] to [facility], and [facility]. [facility] has not responded from [facility]. Pt is aware of SNF choices and is now refused SNF. Pt states her son will provide transport and her walker at bedside. Bedside nurse is aware. Addendum entered by Alison Sagastume 03/09/24 10:12: PASRR assessment has been started and Level II Mental Health Evaluation referral is required. Addendum entered by Alison Sagastume 03/09/24 09:53: Pt is now requesting for SS to attempt find SNF to accept pt. Pt is aware PASRR assessment is required and unsure if PASRR assessment will close today. Original Note: SS met with pt to inform her the [facility] appeal outcome has come back and they have agreed with the hospital. Pt is aware. Pt is requesting assistance at home due to residing alone. SS has offered pt 24 hour home care information. Pt is now requesting SNF placement and is aware she is ready for d/c and SS is unable to guarantee acceptance today from SNF.
[2024-03-09] MEDS: ALPRazoLAM 0.25 MG TABLET PO (10:14)
[2024-03-09] MEDS: prednisoLONE OP SUSP 1% 5 ML BTL 1 DROP BOTH EYES (10:16)
[2024-03-09] MEDS: TIMOLOL OP SOL 0.5% 5 ML BTL 1 DROP BOTH EYES (10:16)
[2024-03-09] MEDS: METOPROLOL TARTRATE 25 MG TABLET 100 MG PO (10:16)
[2024-03-09] MEDS: lorataDINE 10 MG TABLET PO (10:30)
[2024-03-09] MEDS: AZITHROMYCIN 250 MG TABLET 500 MG PO (10:35)
[2024-03-09] MEDS: ENOXAPARIN SOD INJ 40 MG/0.4 ML SYRINGE SC (10:35)
[2024-03-09] MEDS: ASPIRIN EC 81 MG TABEC PO (10:35)
[2024-03-09] MEDS: LACTOBACILLUS RHAMNOSUS 1 CAP PO (10:36)
[2024-03-09] MEDS: PANTOPRAZOLE INJ 40 MG VIAL IVP (10:36)
--- NOTE | 2024-03-10 07:23 | ESDS_ITS ---
<Statement entered by Kaye Avelar DO - 03/10/24 09:26> I, Kaye Avelar DO, attest that I was physically present for the ortega portions of the service and evaluated the patient with the resident and I reviewed and discussed the case with the resident and agree with the resident's findings and plans of care as documented above Planned Discharge Date 03/09/24 DS: Providers Provider Date of admission: 03/04/24 23:09 Primary care physician: Herminia San MD Admitting Provider: Luis Pantoja DO Attending Provider on Admission: Kaye Avelar DO Consults: 03/05/24 11:33 Consult to Gastroenterology Routine Comment: Consulting Provider: Juancho Babb 03/05/24 11:34 Referral Physical Therapy Routine Comment: Physician Instructions: Attending Provider on DC: Andrae Figueroa MD Discharging Provider: Andrae Figueroa MD DS: Diagnosis Problem List Completed Was Problem List Reviewed/Reconciled?: Yes Hospital Course Hospital Course Hospital course: Ms. Ortega is an 83-year-old female with a past medical history significant for atrial flutter s/p ablation [address] Flores, asthma, hypertension and breast cancer s/p left mastectomy and radiation in remission, congenital esophageal stricture status post dilation, chronic back pain presented to [facility] on 03/04[facility]24 ED with a chief complaint of nausea, vomiting and abdominal pain. Patient stated a day prior she was having projectile vomiting which caused her to regurgitate and aspirate. Patient denies any recent travels or sick contacts. Chest x-ray revealed bilateral pneumonia, worse on the left side. Patient was started on IV antibiotics and IV fluids. Patient was also having epigastric abdominal pain relieved by vomiting therefore GI was consulted and and recommended for liver ultrasound which was negative for cholelithiasis with Borderline thickening gallbladder wall and Liver 17.1 cm fatty infiltration no focal liver lesions, Normal hepatopedal portal venous flow. An EKG reveals sinus rhythm with first-degree AV block. Patient's intractable vomiting completely resolved, patient is able to ambulate, patient is saturating on room air without requiring any supplemental oxygen. although Pt was discharged on 03/06 she remained in the hospital for appeal process. Pt was medically cleared to be discharge. Pt complained of a chronic diarrhea for the last 2 years. During hospitalization, per nursing note patient had soft stool but no diarrhea was reported. Patient is advised to follow up outpatient with Dr. Babb to review diarrhea work up tests that are pending. Although C. diff was negative. The remaining tests of stool calprotectin, giardia, H. pylori and norovirus are pending. Patient may also benefit from outpatient colonoscopy to look for microscopic colitis as the cause of the chronic diarrhea patient complained of. Patient is clinically and hemodynamically stable to be discharged home. Discharge Recommendations Recommend follow up outpatient with primary care physician with in 5 days Recommend follow up with GI specialist Dr. Babb out patient within 2 weeks Continue antibiotics as directed for additional 3 days after discharge Advised to promptly return to ED if symptoms recur or worsen Hospitalization Diagnosis #Viral gastroenteritis #lactic acidosis secondary to intractable vomiting #Hyponatremia #Hypokalemia # Acute hypoxic respiratory failure # community-acquired pneumonia versus aspiration pneumonia # History of asthma #Hx of Congenital esophageal stricture #Chronic back pain #Essential hypertension #History of atrial flutter s/p ablation 2014 #Allergic rhinitis #Keratoconus s/p 9 corneal transplants #Glaucoma # History of breast cancer s/p left mastectomy with IntraOp radiation in remission 2014 # History of squamous cell skin carcinoma s/p resection 2022 Assessment and plan discussed with my attending physician Dr. Rosio Figueroa (PGY-1)- Internal medicine resident Time Spent with Patient Time attestation: Total time spent providing and/or coordinating discharge services: >35min Home Health Home Health Referral Orders: 03/08/24 10:15 Home Health Referral Routine Reason For Exam: PT Home-Bound The patient must either because of illness or injury, need the aid of supportive devices such as crutches, canes, wheelchairs, and walkers; the use of special transportation; or the assistance of another person in order to leave their place of residence; OR have a condition such that leaving his or her home is medically contraindicated. In addition, the patient also meets the following criteria: patient is normally unable to leave the home and leaving home requires considerable taxing effort. Addendum to Home Health Certification Practitioner's Certification: I certify that the patient has been under my care in the hospital and the care of attending physician (see below). We had a [id number]-[id number] encounter on (see date below). My clinical findings indicate that the patient is home bound per the above criteria and the Home Health Services noted in these orders are medically necessary. The primary reason for the [id number] encounter is related to the fact that the patient requires home health services. Date Certifying [id number] Physician Encounter: 03/04/24 Physician's Name who will Assume Oversight for Services: Herminia San Physician's Phone No.who will Assume Oversight for Service: CHIEF RECORDIST - Community Resources: No PT to Evaluate: Yes PT to evaluate and provide a treatmnet plan to increase patient's mobility and strength. Wound Care: No IV Therapy: No RN Safety Evaluation: Yes RN to evaluate and create a plan of care that will produce positive outcomes. Palliative Treatment: No Palliative treatment and evaluate the need for hospice. Home Health Aide - Personal Care: No Home Health Aide to assist with any ADL's. Exam Vital Signs Temp Pulse Resp BP Pulse Ox O2 Del Method O2 Flow Rate 97.1 F 79 18 151/86 H 94 L Room Air 2 03/09/24 12:00 03/09/24 12:00 03/09/24 12:00 03/09/24 12:00 03/09/24 12:03/09/24 12:03/09/24 04:00 Narrative Exam GENERAL: A&Ox3 . Awake, Not in acute distress, on room air NEURO: no focal neurological deficits HEENT: Atraumatic, Normocephalic. mucous membranes moist. Eyes open, symmetrical, & clear HEART: Normal Heart Sounds LUNGS: Clear to auscultation with no wheezing or crackles. ABDOMEN: soft, non-distended, non-tender, bowel sounds heard, no guarding or rebound tenderness SKIN: No Rash or ecchymoses EXTREMITIES: No edema, tenderness, able to move all 4 extremities, pedal pulses palpated Discharge Plan Plan Patient Disposition: Home w/HOME HEALTH Patient condition on transfer: Stable Care Plan Goals: Recommend follow up outpatient with primary care physician with in 5 days Recommend follow up with GI specialist Dr. Babb out patient within 2 weeks Continue antibiotics as directed for additional 3 days after discharge Advised to promptly return to ED if symptoms recur or worsen Prescriptions/Referrals Prescriptions/Med Rec: New amoxicillin-pot clavulanate 875-125 mg tablet 1 tab PO BID Qty: 6 0RF Continued gabapentin 600 mg tablet 300 mg PO TID alprazolam 0.5 mg tablet 0.5 mg PO BID PRN (Reason: Anxiety) Rx Instructions: pt always takes Q HS and the other one as needed. potassium chloride 8 mEq tablet extended release 20 meq PO QDAY Rx Instructions: with food omeprazole 20 mg capsule,delayed release(DR/EC) 20 mg PO QDAY Rx Instructions: before a meal furosemide 20 mg tablet 20 mg PO QDAY albuterol sulfate [Ventolin HFA] 90 mcg/actuation HFA aerosol inhaler 2 inh INHALATION Q4HR PRN (Reason: ASTHMA) Patient Comments: INHALE ONE TO TWO PUFFS BY MOUTH FOUR TIMES DAILY aspirin 81 mg Tablet,Delayed Release (Dr/Ec) 81 mg PO QDAY loratadine 10 mg Tablet 10 mg PO QDAY lisinopril-hydrochlorothiazide 20-12.5 mg Tablet 1 tab PO QDAY metoprolol tartrate 50 mg Tablet 100 mg PO BID Rx Instructions: with meals hydrocodone-acetaminophen 5-325 mg Tablet 0.5 tab PO Q6H PRN (Reason: Pain) Rx Instructions: lortab. For lower back pain. biotin 10,000 mcg Capsule 10,000 mcg PO DAILY Rx Instructions: softgel PreserVision AREDS-2 250-90-40-1 mg Capsule 1 tab PO BID Rx Instructions: soft gels cyanocobalamin (vitamin B-12) [Vitamin B-12] 1,000 mcg Tablet 1,000 mcg PO QDAY upnfaexrsqox-apznjagz-hghvis Tablet 1 tab PO QDAY Gemtesa 75 mg Tablet 75 mg PO QDAY simethicone [Gas Relief (simethicone)] 125 mg Capsule 125 mg PO QDAY PRN (Reason: Abdominal Discomfort) Rx Instructions: over the counter. Only takes on occassions. Softgels. carboxymethylcellulose sodium [Refresh Tears] 0.5 % Drops 1 drp OPHTHALMIC (EYE) BID PRN (Reason: Dry Eyes) Rx Instructions: over the counter. loperamide 2 mg Capsule 2 mg PO PRN PRN (Reason: Diarrhea) Rx Instructions: over the counter. tablet. psyllium Powder 1 tbsp PO PRN PRN (Reason: Constipation) Rx Instructions: 1,500mg per serving. Capsule takes 3 casules. Over the counter. psyllium husk, kate,inulin. Per serving: Psyllium husk powder 1,395mg,inulin(chicory root) 75mg, Kate(kate senegal) 30mg. Trelegy Ellipta 200-62.5-25 mcg Blister With Device 1 inh INHALATION QDAY Referrals: Herminia San MD [Primary Care Provider] - Patient/Caregiver Discharge Instructions Education Materials: Bacterial Gastroenteritis Print Language: Citizen Of [place] Stand Alone Forms: [facility]ita Award Info., Patient Portal Info Letter Discharge Order Discharge Orders: Discharge (Routine); Ordered 03/06/24 Ordered By: Andrae Figueroa Quality Discharge Quality Measures none
[2024-03-12 06:38] LABS: Giardia Result NOT DETECTED; Norovirus, EIA (Stool)* NOT DETECTED
[2024-03-13 06:46] LABS: Helicobacter pylori Ag, Stool* NOT DETECTED (NOT DETECTED)
[2024-03-16 06:35] LABS: Calprotectin, Stool* 197 mcg/g
== END 2024-03-09 13:35 | disposition home health service (06) | DRG 177 ==
LOC: SERX 22:23 → SERHOLD 03-05 00:10 → S3SX 03-05 17:38
PROVIDERS: Internal Medicine; Admitting Provider Student in an Organized Health Care Education/Training Program; Emergency Provider Emergency Medicine; PCP Internal Medicine; Visit Provider Internal Medicine
DX: J69.0 Pneumonitis due to inhalation of food and vomit (principal); J96.01 Acute respiratory failure with hypoxia; Q39.3 Congenital stenosis and stricture of esophagus; E87.1 Hypo-osmolality and hyponatremia; E87.20 Acidosis, unspecified; A08.4 Viral intestinal infection, unspecified; I44.0 Atrioventricular block, first degree; E87.6 Hypokalemia; E86.0 Dehydration; J45.909 Unspecified asthma, uncomplicated; F41.1 Generalized anxiety disorder; G89.29 Other chronic pain; K76.0 Fatty (change of) liver, not elsewhere classified; M54.9 Dorsalgia, unspecified; I10 Essential (primary) hypertension; H40.9 Unspecified glaucoma; Z85.3 Personal history of malignant neoplasm of breast; Z90.12 Acquired absence of left breast and nipple; Z94.7 Corneal transplant status; Z92.3 Personal history of irradiation; Z85.828 Personal history of other malignant neoplasm of skin; Z79.82 Long term (current) use of aspirin; Z79.899 Other long term (current) drug therapy; Z79.51 Long term (current) use of inhaled steroids; Z88.1 Allergy status to other antibiotic agents; Z86.79 Personal history of other diseases of the circulatory system
CPT/HCPCS: 36415; 71045; 76705; 80053; 80061; 81001; 83605; 83690; 83735; 83880; 83993; 84100; 84132; 84145; 84443; 84484; 85025; 85610; 85730; 86331; 86635; 87015; 87040; 87045; 87046; 87086; 87205; 87329; 87338; 87400; 87449; 87493; 87502; 87634; 87811; 87899; 93005; 93225; 94640; 96365; 96366; 96367; 96375; 97162; 99285; A9270; J0456; J0696; J1650; J2270; J2405; J2470; J2543; J2919; J3480; J7030; J7050; J7120